=== PATIENT | female | born 2000 | race Caucasian/White ===

== ENCOUNTER 2022-07-24 13:26 | Outpatient (CLI) | payer BC, SELFPAY ==
--- NOTE | 2022-07-24 13:45 | CRLHL7_ITS ---
For Patients: As a result of the Century Cures Act, medical imaging exams and procedure reports are released immediately into your electronic medical record. You may view this report before your referring provider. If you have questions, please contact your health care provider. INDICATION: Migraine headache. TECHNIQUE: Multiplanar multisequence MR imaging acquired through the brain without intravenous contrast. COMPARISON: None. FINDINGS: The ventricles and sulci are within normal limits for patient age. No mass effect or midline shift. No parenchymal signal abnormalities. No intracranial hemorrhage or pathologic extra-axial fluid collection. No diffusion restriction to suggest acute infarction. The major arterial flow voids of the skullbase are preserved. The globes are symmetric. The paranasal sinuses are well aerated. Trace mastoid fluid bilaterally. IMPRESSION: Unremarkable noncontrast MRI of the brain. Dictated by Sean Marr MD @ 07/24/2022 6:04:59 PM (Electronically Signed)
== END 2022-07-24 13:27 | disposition home or self-care (01) ==
LOC: MRI 13:28
PROVIDERS: PCP Psychiatry & Neurology Neurology; Visit Provider Psychiatry & Neurology Neurology
DX: G43.909 Migraine, unspecified, not intractable, without status migrainosus (principal)
CPT/HCPCS: 70551

== ENCOUNTER 2022-11-04 14:51 | Emergency (ER) | payer BC, SELFPAY ==
[2022-11-04 15:04] VITALS: BP 112/75; PULSE 102; RESP 18; TEMP 37.6; O2SAT 99; BMI 20.5
--- NOTE | 2022-11-04 16:43 | CRLHL7_ITS ---
For Patients: As a result of the Century Cures Act, medical imaging exams and procedure reports are released immediately into your electronic medical record. You may view this report before your referring provider. If you have questions, please contact your health care provider. CLINICAL HISTORY: Ovarian cyst IUD No comparison TECHNIQUE: Real time, esposito scale images were acquired of the pelvis using a transabdominal and transvaginal approach. Color Doppler analysis was performed of the ovaries. FINDINGS: The uterus measures 7.4 x 2.7 x 2.8 centimeters. The endometrium measures 6 millimeters. IUD in the endometrial cavity in satisfactory position. The right ovary measures 3.8 x 1.9 x 2.1 centimeters. Left ovary measures 4.4 x 3.2 x 4.1 centimeter. 4 centimeter x 2.4 x 3.6 centimeters left ovarian cyst. Normal blood flow to both ovaries small amount of free fluid in the pelvis IMPRESSION: 1. 4 centimeter left ovarian cyst. Normal blood flow to both ovaries. 2. IUD in satisfactory position. Dictated by Ciara Davis MD @ 11/04/2022 5:43:47 PM (Electronically Signed)
[2022-11-04] MEDS: KETOROLAC 15 MG/ML inj IVP (17:31)
--- NOTE | 2022-11-04 18:02 | ED_ITS ---
HPI - General Adult General Date Seen: 11/04/22 Chief complaint: Unspecified Complaint, Adult Stated complaint: Ovarian cyst Time Seen by Provider: 11/04/22 16:23 Source: patient Mode of arrival: ambulatory Limitations: no limitations History of Present Illness HPI narrative: Patient is a 21-year-old here with her fiance for evaluation of pain from an ovarian cyst. She reports that she was seen in urgent care in [place] last Thursday, 6 days ago. She had an ultrasound, labs and urine done at that time. Urinalysis was negative, test was negative, CBC was normal. An ultr asound showed a 4 x 3 cm complex cyst. It was recommended that she follow-up with gynecology and she has an appointment for that in 2 days time. She says she is continuing to have left lower quadrant pain, a little bit worse than it was last week, which is worse when she is up and walking around. She is supposed to work tomorrow and does not think that she will be able to work, requesting a note. She says she has been taking ibuprofen and Tylenol alternating and does not feel that that adequately controlling her pain. She has not had fevers or vomiting. She had an IUD placed a couple of weeks ago and has continued to have some vaginal bleeding, not heavy. Related Data Home Medications Medication Instructions Recorded Confirmed buspirone 15 mg tablet mg 11/04/22 gabapentin 100 mg capsule mg 11/04/22 rizatriptan 10 mg disintegrating mg 11/04/22 tablet venlafaxine 150 mg mg PO 11/04/22 capsule,extended release 24 hr Allergies Allergy/AdvReac Type Severity Reaction Status Date / Time fluconazole [From Diflucan] Allergy Intermediate Verified 11/04/22 15:09 Review of Systems Status of ROS: Reports: 10 or more systems reviewed and unremarkable except as noted in History and below [facility] Social History Smoking Status: Never smoker Do you use any of these nicotine containing products: None Second hand tobacco smoke exposure: No How often do you have a drink containing alcohol: never AUDIT-C Alcohol total score: 0 Non-prescribed substance use: denies use service: No Exam Narrative: Exam Narrative: Vital signs as noted above. In general, an alert, well-appearing patient. Head: Normocephalic, atraumatic. Eyes: Pupils are equal reactive. Extraocular movements are full. Conjunctivae are normal. ENT: Mucous membranes are moist. Throat is normal. Neck: Supple without lymphadenopathy. Heart: Regular rate and rhythm. No murmur or rub. Lungs: Clear bilaterally. No increased work of breathing, crackles or wheezes. Abdomen: Soft and nondistended. Mild left lower quadrant tenderness without rebound guarding or rigidity. Extremities: Well perfused. No edema. No calf tenderness. Pulses intact. Neurologic: Patient is alert and oriented to person and place. Speech is fluent. Face is symmetric. Moves all extremities equally. Affect: Normal. Skin: Warm and dry. Well perfused. Const: Vital Signs, click to edit/add: Vital Signs - 24 hr 11/04/22 15:04 Temperature 99.7 F H Pulse Rate [Pulse Oximeter] 102 H Respiratory Rate 18 Blood Pressure [Ri ght Upper Arm] 112/75 Pulse Oximetry 99 Oxygen Delivery Me thod Room Air Course Course Hospital Course: I reviewed her findings from urgent care last week. She had these on her phone. I repeated the ultrasound to make sure there was no evidence of rupture, free fluid, torsion. The final radiology report notes the continued presence of of 4 x 3 cm cyst. There is a small amount of free fluid in the pelvis, and rupture is possible, but the cyst seems to be unchanged based on measurements. No evidence of torsion bilaterally. She does not present with sudden severe pain, and my clinical suspicion of torsion is low. I think with good blood flow on ultrasound I do not think she needs further evaluation for that diagnosis. She had some Toradol here. I have asked her to change her medication regimen to use Tylenol and ibuprofen together rather than alternating. Her abdominal exam is benign. I do not think this represents tubo-ovarian abscess or other pelvic infection. I would recommend follow-up with gynecology as planned. I gave her a note for work tomorrow. For continued worsening in the interim, return to the ER for further evaluation. Vital Signs Vital signs: Initial Vital Signs Temperature 99.7 F H 11/04/22 15:04 Temperature Source Temporal Artery Scan 11/04/22 15:04 Pulse Rate 102 H 11/04/22 15:04 Respiratory Rate 18 11/04/22 15:04 Blood Pressure 112/75 11/04/22 15:04 Blood Pressure Mean 87 11/04/22 15:04 Blood Pressure Position Supine 11/04/22 15:04 Pulse Oximetry 99 11/04/22 15:04 Oxygen Delivery Method 11/04/22 15:04 Vital Signs Temperature 99.7 F H 11/04/22 15:04 Pulse Rate 102 H 11/04/22 15:04 Respiratory Rate 18 11/04/22 15:04 Blood Pressure 112/75 11/04/22 15:04 Pulse Oximetry 99 11/04/22 15:04 Oxygen Delivery Method 11/04/22 15:04 Temperature 99.7 F H 11/04/22 15:04 Pulse Rate 102 H 11/04/22 15:04 Respiratory Rate 18 11/04/22 15:04 Blood Pressure 112/75 11/04/22 15:04 Pulse Oximetry 99 11/04/22 15:04 Oxygen Delivery Method 11/04/22 15:04 Discharge Plan Discharge Clinical Impression: Ovarian cyst Patient Disposition: Home, Self-Care Condition: Stable Instructions: Ovarian Cyst (ED) Additional Instructions: Follow-up on with Gynecology as planned. For pain, I would recommend taking ibuprofen 400 mg plus Tylenol 1000 mg 3 times daily with food. Your ultrasound today's unchanged. You have a 4 x 3 cm cyst but there is no evidence of rupture or torsion. Prescriptions: No Action venlafaxine 150 mg capsule,extended release 24hr PO Label Comments: TAKE 1 CAPSULE (150 MG) BY MOUTH ONCE DAILY WITH A MEAL. rizatriptan 10 mg tablet,disintegrating gabapentin 100 mg capsule Label Comments: TAKE 1 CAPSULE (100 MG) BY MOUTH IN THE MORNING AND 1 CAPSULE (100 MG) IN THE EVENING. buspirone 15 mg tablet Label Comments: TAKE 1 TABLET (15 MG) BY MOUTH ONCE DAILY. Follow Up/Referrals: Apolinar Carrion MD [Primary Care Provider] - Stand Alone Forms: [employer] Info Instructions
== END 2022-11-04 18:11 | disposition home or self-care (01) ==
PROVIDERS: Emergency Provider Emergency Medicine; PCP Psychiatry & Neurology Neurology
DX: N83.202 Unspecified ovarian cyst, left side (principal)
CPT/HCPCS: 76830; 93976; 96374; 99284; J1885

== ENCOUNTER 2023-06-10 08:16 | Emergency (ER) | payer BC, SELFPAY ==
[2023-06-10 08:19] VITALS: BP 115/78; PULSE 109; RESP 18; TEMP 36.9; O2SAT 95; BMI 20.5
--- NOTE | 2023-06-10 09:03 | ED_ITS ---
HPI - General Adult General Time Seen by Provider: 09:03 Date Seen: 06/10/23 Chief complaint: Dizziness/Vertigo Stated complaint: dizzy- confused Time Seen by Provider: 06/10/23 08:19 Source: patient Mode of arrival: ambulatory Limitations: no limitations History of Present Illness HPI narrative: Patient is a 22-year-old female who has history of anxiety, depression, migraines, who presents with some lightheadedness a little bit of the dizziness that she describes as lightheadedness over the last 23 hours. She does not think she can go to work. She has done some home COVID test that were negative. She was exposed to COVID. She has not changed her medications recently and she continues on buspirone gabapentin result try pen and venlafaxine. The patient d enies nuchal rigidity headache neurologic complaints, denies specifically fever. Related Data Home Medications Medication Instructions Recorded Confirmed buspirone 15 mg tablet 15 mg 11/04/22 gabapentin 100 mg capsule 100 mg 11/04/22 rizatriptan 10 mg disintegrating 10 mg 11/04/22 tablet venlafaxine 150 mg 150 mg PO 11/04/22 capsule,extended release 24 hr Allergies Allergy/AdvReac Type Severity Reaction Status Date / Time fluconazole [From Diflucan] Allergy Intermediate Verified 11/04/22 15:09 Review of Systems Status of ROS: Reports: 6 or more systems reviewed and unremarkable except as noted in History and below [facility] Social History Smoking Status: Never smoker Do you use any of these nicotine containing products: None Second hand tobacco smoke exposure: No How often do you have a drink containing alcohol: never AUDIT-C Alcohol total score: 0 Non-prescribed substance use: denies use service: No Exam Narrative: Exam Narrative: Objective: In general patient apparent distress noncyanotic no facial asymmetry Vital signs look largely unremarkable and slightly elevated pulse of 109, is afebrile, O2 sat 95% on room air HEENT is unremarkable no facial asymmetry mouth well-hydrated Neck is supple Chest is clear no rales or wheezing Heart rhythm regular no murmur Abdomen benign soft nontender Extremities are no edema neurologic nonfocal Const: Vital Signs, click to edit/add: Vital Signs - 24 hr 06/10/23 08:19 06/10/23 09:45 06/10/23 10:58 Temperature 98.5 F Pulse Rate [Right Pulse Oximeter] 109 H 82 74 Respiratory Rate 18 14 Blood Pressure [Ri ght Upper Arm] 115/78 104/65 107/64 Pulse Oximetry 95 100 Oxygen Delivery Me thod Room Air Room Air Course Vital Signs Vital signs: Initial Vital Signs Temperature 98.5 F 06/10/23 08:19 Temperature Source Temporal Artery Scan 06/10/23 08:19 Pulse Rate 109 H 06/10/23 08:19 Respiratory Rate 18 06/10/23 08:19 Blood Pressure 115/78 06/10/23 08:19 Blood Pressure Mean 90 06/10/23 08:19 Blood Pressure Position Sitting 06/10/23 08:19 Pulse Oximetry 95 06/10/23 08:19 Oxygen Delivery Method Room Air 06/10/23 08:19 Vital Signs Temperature 98.5 F 06/10/23 08:19 Pulse Rate 109 H 06/10/23 08:19 Respiratory Rate 18 06/10/23 08:19 Blood Pressure 115/78 06/10/23 08:19 Pulse Oximetry 95 06/10/23 08:19 Oxygen Delivery Method Room Air 06/10/23 08:19 Temperature 98.5 F 06/10/23 08:19 Pulse Rate 74 06/10/23 10:58 Respiratory Rate 14 06/10/23 09:45 Blood Pressure 107/64 06/10/23 10:58 Pulse Oximetry 100 06/10/23 09:45 Oxygen Delivery Method Room Air 06/10/23 09:45 Medical Decision Making MDM Narrative Medical decision making narrative: [age] year white female with intermittent lightheadedness over the last couple of days slight dizziness, worse with sitting up quickly, or movement. Possibly mild labyrinthitis. I think it be worth checking COVID/influenza/RSV again. Will check laboratory studies, will give IV fluid, IV Ativan. Will write a note for off work for 2 days and then recheck with primary care at that time. Please see addendum with lab results and disposition Addendum: 10:40 a.m.: The patient's lab studies all look reassuring, her COVID/influenza/RSV tests are negative. I think she should rest today light activity, fluids, off work for a couple of days and then return to primary care, return to ED sooner problems or concerns she certainly could have some type of viral infection but certainly her viral studies today are negative. Her hemodynamics appear stable. Patient comfortable plan. Lab Data Labs: Lab Results 06/10/23 06/10/23 06/10/23 Range/Units 08:22 09:30 09:30 WBC 4.52 (4.50-11.00) K/uL RBC 4.75 (4.00-5.20) m/uL Hgb 14.1 (12.0-16.0) gm/dL Hct 41.7 (33.0-51.0) % MCV 88 (80-100) fL MCH 30 (26-34) pg MCHC 34 (32-36) gm/dL RDW Coeff of Emiliano 12.6 (11.5-15.5) % Plt Count 214 (140-440) K/uL Neut % (Auto) 56.9 (42.0-72.0) % Lymph % (Auto) 32.1 (20-44) % [place] % (Auto) 9.1 (0.0-11.0) % Eos % (Auto) 1.5 (0.0-7.0) % Baso % (Auto) 0.4 (0.0-3.0) % Neut # (Auto) 2.57 (1.7-7.0) K/uL Lymph # (Auto) 1.45 (0.90-2.90) K/uL [place] # (Auto) 0.40 (0.00-0.90) K/UL Eos # (Auto) 0.07 (0.00-0.50) K/uL Baso # (Auto) 0.02 (0.00-0.30) K/uL Abs Immat Gran (auto) 0.00 (0.00-0.30) K/uL Imm/Tot Granulo (auto) 0.0 % Sodium 139 (135-149) mmol/L Potassium 3.6 (3.6-5.1) mmol/L Chloride 103 (96-114) mmol/L Carbon Dioxide 26 (20-32) mmol/L Anion Gap 10 (7-15) mEq/L BUN 10 (5-24) mg/dL Creatinine 0.6 (0.5-1.5) mg/dL Estimated Creat Clear 140.97 Estimated GFR 129 ml/min Glucose 93 (60-115) mg/dL Calcium 9.5 (8.4-10.6) mg/dL Total Bilirubin 0.8 Cancelled (0.1-1.5) mg/dL Direct Bilirubin 0.0 (0.0-0.5) mg/dL AST (12-35) U/L ALT (4-35) U/L Alkaline Phosphatase (40-150) U/L C-Reactive Protein (0.5-1.0) mg/dL Total Protein (6.0-8.3) g/dL Albumin (3.3-5.0) g/dL Amylase (18-89) U/L HCG, Qual (Negative) SARS-CoV-2 (PCR) Negative SARS-CoV-2 (Negative) Influenza Type A (PCR) Negative PCR FLU A (Negative) Influenza Type B (PCR) Negative PCR FLU B (Negative) RSV (PCR) Negative PCR RSV (Negative) 06/10/23 06/10/23 06/10/23 Range/Units 09:30 09:30 09:30 WBC (4.50-11.00) K/uL RBC (4.00-5.20) m/uL Hgb (12.0-16.0) gm/dL Hct (33.0-51.0) % MCV (80-100) fL MCH (26-34) pg MCHC (32-36) gm/dL RDW Coeff of Emiliano (11.5-15.5) % Plt Count (140-440) K/uL Neut % (Auto) (42.0-72.0) % Lymph % (Auto) (20-44) % [place] % (Auto) (0.0-11.0) % Eos % (Auto) (0.0-7.0) % Baso % (Auto) (0.0-3.0) % Neut # (Auto) (1.7-7.0) K/uL Lymph # (Auto) (0.90-2.90) K/uL [place] # (Auto) (0.00-0.90) K/UL Eos # (Auto) (0.00-0.50) K/uL Baso # (Auto) (0.00-0.30) K/uL Abs Immat Gran (auto) (0.00-0.30) K/uL Imm/Tot Granulo (auto) % Sodium (135-149) mmol/L Potassium (3.6-5.1) mmol/L Chloride (96-114) mmol/L Carbon Dioxide (20-32) mmol/L Anion Gap (7-15) mEq/L BUN (5-24) mg/dL Creatinine (0.5-1.5) mg/dL Estimated Creat Clear Estimated GFR ml/min Glucose (60-115) mg/dL Calcium (8.4-10.6) mg/dL Total Bilirubin (0.1-1.5) mg/dL Direct Bilirubin Cancelled (0.0-0.5) mg/dL AST 41 H Cancelled (12-35) U/L ALT 30 Cancelled (4-35) U/L Alkaline Phosphatase 43 (40-150) U/L C-Reactive Protein (0.5-1.0) mg/dL Total Protein (6.0-8.3) g/dL Albumin (3.3-5.0) g/dL Amylase (18-89) U/L HCG, Qual (Negative) SARS-CoV-2 (PCR) (Negative) Influenza Type A (PCR) (Negative) Influenza Type B (PCR) (Negative) RSV (PCR) (Negative) 06/10/23 06/10/23 06/10/23 Range/Units 09:30 09:30 09:30 WBC (4.50-11.00) K/uL RBC (4.00-5.20) m/uL Hgb (12.0-16.0) gm/dL Hct (33.0-51.0) % MCV (80-100) fL MCH (26-34) pg MCHC (32-36) gm/dL RDW Coeff of Emiliano (11.5-15.5) % Plt Count (140-440) K/uL Neut % (Auto) (42.0-72.0) % Lymph % (Auto) (20-44) % [place] % (Auto) (0.0-11.0) % Eos % (Auto) (0.0-7.0) % Baso % (Auto) (0.0-3.0) % Neut # (Auto) (1.7-7.0) K/uL Lymph # (Auto) (0.90-2.90) K/uL [place] # (Auto) (0.00-0.90) K/UL Eos # (Auto) (0.00-0.50) K/uL Baso # (Auto) (0.00-0.30) K/uL Abs Immat Gran (auto) (0.00-0.30) K/uL Imm/Tot Granulo (auto) % Sodium (135-149) mmol/L Potassium (3.6-5.1) mmol/L Chloride (96-114) mmol/L Carbon Dioxide (20-32) mmol/L Anion Gap (7-15) mEq/L BUN (5-24) mg/dL Creatinine (0.5-1.5) mg/dL Estimated Creat Clear Estimated GFR ml/min Glucose (60-115) mg/dL Calcium (8.4-10.6) mg/dL Total Bilirubin (0.1-1.5) mg/dL Direct Bilirubin (0.0-0.5) mg/dL AST (12-35) U/L ALT (4-35) U/L Alkaline Phosphatase Cancelled (40-150) U/L C-Reactive Protein < 0.5 L (0.5-1.0) mg/dL Total Protein 8.1 Cancelled (6.0-8.3) g/dL Albumin 4.5 Cancelled (3.3-5.0) g/dL Amylase 78 (18-89) U/L HCG, Qual Negative (Negative) SARS-CoV-2 (PCR) (Negative) Influenza Type A (PCR) (Negative) Influenza Type B (PCR) (Negative) RSV (PCR) (Negative) Discharge Plan Discharge Clinical Impression: Dizziness Patient Disposition: Home w/ Parent or Adult Condition: Stable Additional Instructions: Off work for 2 days, see primary care at that time, rest, drink plenty of fluids. May take Tylenol Advil as needed. Return to the ED problems or concerns, years workup today was reassuring. May need further care as mention and should see primary care. Activity Level: Light activity Discharge Diet: Regular Prescriptions: No Action venlafaxine 150 mg capsule,extended release 24hr 150 mg PO Patient Comments: TAKE 1 CAPSULE (150 MG) BY MOUTH ONCE DAILY WITH A MEAL. rizatriptan 10 mg tablet,disintegrating 10 mg gabapentin 100 mg capsule 100 mg Patient Comments: TAKE 1 CAPSULE (100 MG) BY MOUTH IN THE MORNING AND 1 CAPSULE (100 MG) IN THE EVENING. buspirone 15 mg tablet 15 mg Patient Comments: TAKE 1 TABLET (15 MG) BY MOUTH ONCE DAILY. Follow Up/Referrals: Apolinar Carrion MD [Primary Care Provider] - Stand Alone Forms: 2,10E+07 Info Instructions
[2023-06-10 09:11] LABS: PCR FLU A Negative PCR FLU A (Negative); PCR FLU B Negative PCR FLU B (Negative); PCR RSV Negative PCR RSV (Negative)
[2023-06-10 09:26] LABS: SARS PCR* Negative SARS-CoV-2 (Negative)
[2023-06-10] MEDS: 0.9 % SODIUM CHLORIDE 1000 ml 1,000 ML 6000 ML IV (09:39)
[2023-06-10 09:40] LABS: Basophils Absolute Auto 0.02 K/uL (0.00-0.30); Basophils Percent Auto 0.4 % (0.0-3.0); Eosinophils Absolute Auto 0.07 K/uL (0.00-0.50); Eosinophils Percent Auto 1.5 % (0.0-7.0); Hematocrit 41.7 % (33.0-51.0); Hemoglobin* 14.1 gm/dL (12.0-16.0); Lymphocytes Absolute Auto 1.45 K/uL (0.90-2.90); Lymphocytes Percent Auto 32.1 % (20-44); Mean Corpuscular HGB Conc 34 gm/dL (32-36); Mean Corpuscular Hemoglobin 30 pg (26-34); Mean Corpuscular Volume 88 fL (80-100); Monocytes Percent Auto 9.1 % (0.0-11.0); Neutrophils Absolute Auto 2.57 K/uL (1.7-7.0); Neutrophils Percent Auto 56.9 % (42.0-72.0); Platelet Count* 214 K/uL (140-440); RDW Coefficient of Variation % 12.6 % (11.5-15.5); Red Blood Count 4.75 m/uL (4.00-5.20); White Blood Count* 4.52 K/uL (4.50-11.00)
[2023-06-10 09:41] LABS: Slide Review Reflex No
[2023-06-10] MEDS: LORazepam 2 MG/ML inj 1 MG IVP (09:41)
[2023-06-10 09:45] VITALS: BP 104/65; PULSE 82; RESP 14; O2SAT 100
[2023-06-10 10:09] LABS: Albumin* 4.5 g/dL (3.3-5.0); Chloride* 103 mmol/L (96-114); Sodium* 139 mmol/L (135-149)
[2023-06-10 10:10] LABS: Potassium* 3.6 mmol/L (3.6-5.1)
[2023-06-10 10:12] LABS: Amylase* 78 U/L (18-89); Anion Gap 10 mEq/L (7-15); Aspartate Amino Transferase* 41 U/L (12-35); Bilirubin Total* 0.8 mg/dL (0.1-1.5); Blood Urea Nitrogen* 10 mg/dL (5-24); Carbon Dioxide* 26 mmol/L (20-32); Creatinine* 0.6 mg/dL (0.5-1.5); Est. Creatinine Clearance* 140.97; Estimated Glomerular Filt Rate 129 ml/min; Total Protein* 8.1 g/dL (6.0-8.3)
[2023-06-10 10:13] LABS: Alanine Aminotransferase* 30 U/L (4-35); Alkaline Phosphatase* 43 U/L (40-150); Calcium* 9.5 mg/dL (8.4-10.6); Glucose* 93 mg/dL (60-115)
[2023-06-10 10:14] LABS: HCG Qualitative Serum* Negative (Negative)
[2023-06-10 10:35] LABS: C Reactive Protein* < 0.5 mg/dL (0.5-1.0)
[2023-06-10 10:58] VITALS: BP 107/64; PULSE 74
== END 2023-06-10 10:58 | disposition home or self-care (01) ==
PROVIDERS: Emergency Provider Family Medicine; PCP Psychiatry & Neurology Neurology
DX: R42 Dizziness and giddiness (principal)
CPT/HCPCS: 36415; 80048; 80076; 82150; 84703; 85025; 86140; 87631; 96361; 96374; 99284; J2060; J7030

== ENCOUNTER 2024-11-13 15:16 | Emergency (ER) | payer OTHER, SELFPAY ==
[2024-11-13] VITALS (29 sets, daily range): BP systolic 82–113; BP diastolic 45–78; PULSE 67–99; RESP 16–18; TEMP 36.4–36.5; O2SAT 97–100; BMI 22.2
--- OUTSIDE RECORDS SUMMARY | 2024-11-13 15:18 | XMS_ITS | Data Portability ---
Author Organization [place] - [facility] [employer], [employer] [facility] Address [address] [facility] [address] [place] [address] Assessment Encounter Date Assessment Date Assessment LastModified by Organization Details LastModified Time 09/12/2024 09/12/2024 ASSESSMENT: Visit 12/27 Patient is a good candidate for conservative care and the prognosis is for a favorable outcome that achieves the patients' goals. We discussed etiology, activity modifications, home care, and other treatment options. Initially, it is recommended that the patient receive in-office treatment 1 times per week for 8 weeks at which time a re-evaluation will be performed to determine an appropriate change in plan. Initially, treatment will focus on joint manipulation to restore range of motion and reduce pain. We will slowly progress to therapeutic exercises and activities to improve function, strength, and stability may also be used as warranted. If the patient is not responding as expected, more invasive procedures will be discussed along with a referral. All considerations above were discussed with the patient and questions answered to satisfaction. If the patient should have any additional questions, or should the condition evolve or worsen, the patient should not hesitate to contact our office. Not available 09/12/2024 14:41:07 09/26/2024 09/26/2024 ASSESSMENT: Visit 01/26 Patient is a good candidate for conservative care and the prognosis is for a favorable outcome that achieves the patients' goals. We discussed etiology, activity modifications, home care, and other treatment options. Initially, it is recommended that the patient receive in-office treatment 1 times per week for 8 weeks at which time a re-evaluation will be performed to determine an appropriate change in plan. Initially, treatment will focus on joint manipulation to restore range of motion and reduce pain. We will slowly progress to therapeutic exercises and activities to improve function, strength, and stability may also be used as warranted. If the patient is not responding as expected, more invasive procedures will be discussed along with a referral. All considerations above were discussed with the patient and questions answered to satisfaction. If the patient should have any additional questions, or should the condition evolve or worsen, the patient should not hesitate to contact our office. Not available 09/28/2024 09:09:09 10/10/2024 10/10/2024 ASSESSMENT: Visit 68 Patient is a good candidate for conservative care and the prognosis is for a favorable outcome that achieves the patients' goals. We discussed etiology, activity modifications, home care, and other treatment options. Initially, it is recommended that the patient receive in-office treatment 1 times per week for 8 weeks at which time a re-evaluation will be performed to determine an appropriate change in plan. Initially, treatment will focus on joint manipulation to restore range of motion and reduce pain. We will slowly progress to therapeutic exercises and activities to improve function, strength, and stability may also be used as warranted. If the patient is not responding as expected, more invasive procedures will be discussed along with a referral. All considerations above were discussed with the patient and questions answered to satisfaction. If the patient should have any additional questions, or should the condition evolve or worsen, the patient should not hesitate to contact our office. Not available 10/10/2024 14:40:22 10/24/2024 10/24/2024 ASSESSMENT: Visit 03/28 Patient is a good candidate for conservative care and the prognosis is for a favorable outcome that achieves the patients' goals. We discussed etiology, activity modifications, home care, and other treatment options. Initially, it is recommended that the patient receive in-office treatment 1 times per week for 8 weeks at which time a re-evaluation will be performed to determine an appropriate change in plan. Initially, treatment will focus on joint manipulation to restore range of motion and reduce pain. We will slowly progress to therapeutic exercises and activities to improve function, strength, and stability may also be used as warranted. If the patient is not responding as expected, more invasive procedures will be discussed along with a referral. All considerations above were discussed with the patient and questions answered to satisfaction. If the patient should have any additional questions, or should the condition evolve or worsen, the patient should not hesitate to contact our office. Not available 10/24/2024 15:27:57 11/08/2024 11/08/2024 ASSESSMENT: Visit 04/28 Patient is a good candidate for conservative care and the prognosis is for a favorable outcome that achieves the patients' goals. We discussed etiology, activity modifications, home care, and other treatment options. Initially, it is recommended that the patient receive in-office treatment 1 times per week for 8 weeks at which time a re-evaluation will be performed to determine an appropriate change in plan. Initially, treatment will focus on joint manipulation to restore range of motion and reduce pain. We will slowly progress to therapeutic exercises and activities to improve function, strength, and stability may also be used as warranted. If the patient is not responding as expected, more invasive procedures will be discussed along with a referral. All considerations above were discussed with the patient and questions answered to satisfaction. If the patient should have any additional questions, or should the condition evolve or worsen, the patient should not hesitate to contact our office. Not available 11/08/2024 18:05:46 Plan of Treatment Reminders Order Date Submit Date Provider Last Modified By Organization Details Last Modified Time Details Appointments DC Treatment 05 2024 08:00A M Ryan Peralta ASHWIN Not available Not available Not available Lab None recorded. Referral None recorded. Procedures None recorded. Surgeries None recorded. Imaging None recorded. Medication Orders None recorded. Patient TargetsNo targets recorded. Patient InstructionsNo instructions recorded. Reason for Referral None Reported. Problems Name Problem SNOMED Code Status Onset Date Resolution Date Notes Provider Name and Address Organization Details Recorded Time Neck pain 30664999 Active 2023 Ryan Galvez SelvinyaniraASHWIN [address], [place], [address], [facility] 4 11:21:16 Thoracic segmental dysfunction 299431609 Active 2023 Ryan Galvez [place] [address], [place], [address], [facility] 4 11:21:16 Lesion of lumbar spine 409713949 Active 2023 Ryan Orellanaanilyanira [place] [address], [place], [address], [place] [facility] 4 11:21:16 Lumbar segmental dysfunction 484309367 Active 2023 Ryan Peralta [place] [address], [place], [address], [place] [facility] 4 11:21:16 Problem Notes None recorded. Procedures Surgical History Date Name Laterality Status Provider Name and Address Organization Details Recorded Time 5 71372: Spinal manipulation , 3 to 4 regions completed Ryan Peralta DC [address], [place], [address], [facility] 11/08/2024 18:05:24 5 21269: Spinal manipulation , 3 to 4 regions completed Ryan Peralta DC [address], [place], [address], [facility] 10/24/2024 15:26:53 5 83276: Spinal manipulation , 3 to 4 regions completed Ryan Peralta DC [address], [place], [address], [facility] 10/10/2024 14:39:50 5 24631: Spinal manipulation , 3 to 4 regions completed Ryan Peralta ASHWIN [address], [place], [address], [facility] 09/28/2024 09:08:51 4 10079: Spinal manipulation , 3 to 4 regions completed Ryan Peralta DC [address], [place], [address], [facility] 09/12/2024 14:40:41 4 34532: Spinal manipulation , 3 to 4 regions completed Ryan Peralta, [place] [address], [place], [address], [facility] 09/05/2024 16:59:23 4 72480: Spinal manipulation , 3 to 4 regions completed [place], [place] [address], [place], [address], [facility] 08/29/2024 15:14:59 13103: Spinal manipulation , 3 to 4 regions completed [place], [place] [address], [place], [address], [facility] 08/24/2024 11:22:37 Imaging Results None recorded. Procedure Notes None recorded. Medical Equipment None Reported. Medications Name Sig Start Date Stop Date Status Note LastModified by Organization Details LastModified Time cyclobenzaprine 10 mg tablet TAKE 1 TABLET (10 MG) BY MOUTH AT BEDTIME IF NEEDED FOR MUSCLE SPASM. active Not Available Not Available No t Available venlafaxine ER 75 mg capsule,extende d release 24 hr TAKE 1 CAPSULE (75 MG) BY MOUTH EVERY MORNING. WITH 150 MG CAPSULE active Not Available Not Available No t Available cetirizine 10 mg tablet TAKE 1 TABLET (10 MG) BY MOUTH ONCE DAILY. active Not Available Not Available No t Available tizanidine 4 mg tablet TAKE 1 TABLET (4 MG) BY MOUTH EVERY 6 HOURS IF NEEDED FOR MUSCLE SPASM. active Not Available Not Available No t Available venlafaxine ER 150 mg capsule,extende d release 24 hr TAKE 1 CAPSULE (150 MG) BY MOUTH ONCE DAILY WITH A MEAL. TAKE WITH 75 MG CAPSULE FOR TOTAL DAILY DOSE OF 225 MG. active Not Available Not Available No t Available rizatriptan [address] 1 TABLET (10MG) ON THE TONGUE 2 TIMES DAILY IF NEEDED FOR MIGRAINE . MINIMUM AT 2HRS APART. MAX DOSE 30MG/24H RS. DO NOT TAKE DAILY active Not Available Not Available No t Available gabapentin 100 mg capsule TAKE 1 CAPSULE (100 MG) BY MOUTH IN THE MORNING AND 1 CAPSULE (100 MG) IN THE EVENING. active Not Available Not Available No t Available polyethylene glycol 3350 17 gram/dose oral powder MIX 1 SCOOP (17 G) IN LIQUID THEN TAKE BY MOUTH ONCE DAILY. active Not Available Not Available No t Available amoxicillin 875 mg-potassium clavulanate 125 mg tablet TAKE 1 TABLET BY MOUTH TWO TIMES DAILY WITH MEALS FOR 5 DAYS. active Not Available Not Available No t Available buspirone 15 mg tablet TAKE 1 TABLET (15 MG) BY MOUTH ONCE DAILY. active Not Available Not Available No t Available oxycodone 5 mg tablet TAKE 1-2 TABLETS (5-10 MG) BY MOUTH EVERY 4 HOURS IF NEEDED FOR PAIN. active Not Available Not Available No t Available Clotrimazole-3 2 % vaginal cream INSERT INTO THE VAGINA AT BEDTIME FOR 3 DAYS. active Not Available Not Available No t Available Vitals None Recorded Social History None recorded. Functional Status None recorded. Mental Status None recorded. Family History Nothing Reported. Medical History No medical history recorded. Gynecological HistoryNo gynecological history recorded. Obstetrics History GPAL:G 0 P 0 0 0 0 Past Encounters Encounter ID Performer Location Encounter Start Date Encounter Closed Date Diagnosis/Indication Diagnosis SNOMED-CT Code Diagnosis ICD10 Code Diagnosis Note [id number] [place]eralta [place] [facility] [address] [place] [address] 08/24/2024 10:14:22 08/24/2024 11:50:00 Lesion of lumbar spine 482313574 M99.01 Neck pain 26035442 M54.2 Thoracic s egmental dysfunction 497777386 M99.02 Lumbar seg mental dysfunction 559053388 M99.03 [id number] Ryan Peralta [place] [facility] [address] [place] [address] 08/29/2024 11:38:29 08/29/2024 16:29:36 Lesion of lumbar spine 347410273 M99.01 Neck pain 64901011 M54.2 Thoracic s egmental dysfunction 479483917 M99.02 Lumbar seg mental dysfunction 750946227 M99.03 [id number] Ryan Peralta [place] [facility] [address] [place] [address] 09/05/2024 16:09:09 09/05/2024 17:14:32 Lesion of lumbar spine 193122048 M99.01 Neck pain 89009543 M54.2 Thoracic s egmental dysfunction 890737192 M99.02 Lumbar seg mental dysfunction 176651210 M99.03 [id number] Ryan Peralta DC [facility] & [address] [place] [address] 09/12/2024 12:52:40 09/12/2024 14:51:32 Lesion of lumbar spine 758577201 M99.01 Neck pain 25775065 M54.2 Thoracic s egmental dysfunction 973122325 M99.02 Lumbar seg mental dysfunction 296489836 M99.03 [id number] Ryan Peralta DC [facility] [address] [place] [address] 09/26/2024 10:18:53 09/27/2024 11:21:16 Lesion of lumbar spine 129605486 M99.01 Neck pain 66661598 M54.2 Thoracic s egmental dysfunction 728190002 M99.02 Lumbar seg mental dysfunction 488378679 M99.03 [id number] Ryan Peralta DC [facility] [address] [place] [address] 10/10/2024 09:26:45 10/10/2024 15:13:24 Lesion of lumbar spine 860913252 M99.01 Neck pain 00195065 M54.2 Thoracic s egmental dysfunction 413395153 M99.02 Lumbar seg mental dysfunction 786506484 M99.03 [id number] Ryan Peralta DC [facility] [address] [place] [address] 10/24/2024 09:27:20 10/24/2024 16:15:22 Lesion of lumbar spine 222338313 M99.01 Neck pain 59295099 M54.2 Thoracic s egmental dysfunction 921101909 M99.02 Lumbar seg mental dysfunction 689290809 M99.03 [id number] Ryan Peralta DC [facility] [address] [place] [address] 11/08/2024 12:21:44 11/08/2024 18:19:19 Lesion of lumbar spine 031229944 M99.01 Neck pain 55340917 M54.2 Thoracic s egmental dysfunction 260209664 M99.02 Lumbar seg mental dysfunction 324172127 M99.03 Health Concerns Section Related Observation LastModified by Organization Detai ls LastModified Time None Recorded Concern Status LastModified by Organization Details LastModified Time None Recorded Advance Directives Directive None Recorded Payers Encounter Date Sequence Insurance Name Policy Number Policy Morrow Covered Member ID Morrow Member ID Guarantor Name 09/12/2024 1 [id number] [id number] Evelyn A Savana [id number] Evelyn Savana 09/26/2024 1 [facility] [id number] [place] [id number] Evelyn Savana 10/10/2024 1 [facility] [id number] Evelyn [place] [id number] Evelyn Savana 10/24/2024 1 [facility] [id number] Evelyn [place] [id number] Evelyn Savana 11/08/2024 1 [facility] [id number] Evelyn Savana [id number] Evelyn Savana Notes Date Note Type Note Provider Name and Address Organization Details Recorded Time 09/12/2024 text/html HPI - Cervical SpineReported bypatient.Location: left Quality:aching Severity:moderate Duration:2 weeks Timing:gradual Alleviating Factors:ice Aggravating Factors:sitting Associated Symptoms:no numbness/tinglingNo concha:Associated migraines and sternum pain Patient reports improvement. Ryan Orellanaanilyanira [address], [address], [facility] 09/12/2024 14:41:22 09/26/2024 text/html HPI - Cervical SpineReported bypatient.Location: left Quality:aching Severity:moderate Duration:2 weeks Timing:gradual Alleviating Factors:ice Aggravating Factors:sitting Associated Symptoms:no numbness/tinglingNo concha:Associated migraines and sternum pain Patient reports no headache in the past 2 weeks. Ryan Peralta [place] [address], [place], [address], [facility] 09/28/2024 09:09:32 10/10/2024 text/html HPI - Cervical SpineReported bypatient.Location: left Quality:aching Severity:moderate Duration:2 weeks Timing:gradual Alleviating Factors:ice Aggravating Factors:sitting Associated Symptoms:no numbness/tinglingNo concha:Associated migraines and sternum pain Patient reports small headache last week. Ryan Peralta DC [address], [place], [address], [facility] 10/10/2024 14:40:35 10/24/2024 text/html HPI - Cervical SpineReported bypatient.Location: left Quality:aching Severity:moderate Duration:2 weeks Timing:gradual Alleviating Factors:ice Aggravating Factors:sitting Associated Symptoms:no numbness/tinglingNo concha:Associated migraines and sternum pain Patient reports small headache last week. Ryan Peralta DC [address], [place], [address], [facility] 10/24/2024 15:28:13 11/08/2024 text/html HPI - Cervical SpineReported bypatient.Location: left Quality:aching Severity:moderate Duration:2 weeks Timing:gradual Alleviating Factors:ice Aggravating Factors:sitting Associated Symptoms:no numbness/tinglingNo concha:Associated migraines and sternum pain Patient reports small headache last week. Ryan Peralta DC [address], [place], [address], [facility] 11/08/2024 18:06:11 OBGyn Episode No OBEpisode recorded.
--- OUTSIDE RECORDS SUMMARY | 2024-11-13 15:18 | XMS_ITS | Continuity of Care Document ---
Author Organization [place] - [facility] Address [address] [place] [address] Assessment Encounter Date Assessment Date Assessment LastModified by Organization Details LastModified Time 10/24/2024 10/24/2024 ASSESSMENT: Visit 7/8 Patient is a good candidate for conservative [...] should not hesitate to contact our office. [email or web address] Not available 10/24/2024 15:27:57 Plan of Treatment Reminders Order Date Submit Date Provider Last Modified By Organization Details Last Modified Time Details Appointments DC Treatment 05 2024 08:00A M Ryan Peralta DC Not available Not available Not available Lab None recorded. Referral None recorded. Procedures None recorded. Surgeries None recorded. Imaging None recorded. Medication Orders None recorded. Patient TargetsNo targets recorded. Patient InstructionsNo instructions recorded. Reason for Referral None Reported. Problems Name Problem SNOMED Code Status Onset Date Resolution Date Notes Provider Name and Address Organization Details Recorded Time Neck pain 25487643 Active 2023 Ryan Peralta DC [address], [place], [address], [facility] 4 11:21:16 Thoracic segmental dysfunction 551749570 Active 2023 Ryan Peralta DC [address], [place], [address], [facility] 4 11:21:16 Lesion of lumbar spine 604925789 Active 2023 Ryan Peralta DC [address], [place], [address], [facility] 4 11:21:16 Lumbar segmental dysfunction 878730520 Active 2023 Ryan Peralta DC [address], [place], [address], [facility] 4 11:21:16 Problem Notes None recorded. Procedures Surgical History Date Name Laterality Status Provider Name and Address Organization Details Recorded Time 5 04989: Spinal manipulation , 3 to 4 regions completed Ryan Peralta DC [address] [facility], [place], [address], [facility] 11/08/2024 18:05:24 5 74612: Spinal manipulation , 3 to 4 regions completed Ryan Peralta DC [address], [place], [address], [facility] 10/24/2024 15:26:53 5 27373: Spinal manipulation , 3 to 4 regions completed Ryan Peralta DC [address] [facility] [address], [place], [address], [facility] 10/10/2024 14:39:50 5 81924: Spinal manipulation , 3 to 4 regions completed Ryan Peralta [place] [address] [facility] [address], [place], [address], [facility] 09/28/2024 09:08:51 4 45054: Spinal manipulation , 3 to 4 regions completed [facility] [place] [address], [place], [address], [facility] 09/12/2024 14:40:41 4 94438: Spinal manipulation , 3 to 4 regions [facility] [place] [place] [place] [address], [place], [address], [facility] 09/05/2024 16:59:23 4 18801: Spinal manipulation , 3 to 4 regions completed [facility] [place] [address], [place], [address], [facility] 08/29/2024 15:14:59 4 06280: Spinal manipulation , 3 to 4 regions completed [facility] [place] [address], [place], [address], [facility] 08/24/2024 11:22:37 Imaging Results None recorded. Procedure [...] SNOMED-CT Code Diagnosis ICD10 Code Diagnosis Note [id number] Ryan Peralta DC [facility] & [address] [place] [address] 09/26/2024 10:18:53 09/27/2024 11:21:16 Lesion of lumbar spine 639655932 M99.01 Neck pain 87144223 M54.2 Thoracic s egmental dysfunction 034935412 M99.02 Lumbar seg mental dysfunction 182224037 M99.03 [id number] Ryan Peralta DC [facility] & [address] [place] [address] 10/10/2024 09:26:45 10/10/2024 15:13:24 Lesion of lumbar spine 305305916 M99.01 Neck pain 95689470 M54.2 Thoracic s egmental dysfunction 985044249 M99.02 Lumbar seg mental dysfunction 402701106 M99.03 [id number] Ryan Peratla DC [facility] [address] [facility] [place] [address] 10/24/2024 09:27:20 10/24/2024 16:15:22 Lesion of lumbar spine 794256832 M99.01 Neck pain 53286531 M54.2 Thoracic s egmental dysfunction 651397565 M99.02 Lumbar seg mental dysfunction 774425678 M99.03 Health Concerns Section Related Observation LastModified by Organization Detai ls LastModified Time None Recorded Concern Status LastModified by Organization Details LastModified Time None Recorded Payers Encounter Date Sequence Insurance Name Policy Number Policy Morrow Covered Member ID Morrow Member ID Guarantor Name 10/24/2024 1 [facility] [id number] Evelyn Sawant [id number] Evelyn Sawant Notes Date Note Type Note Provider Name and Address Organization Details Recorded Time 10/24/2024 text/html HPI - Cervical SpineReported bypatient.Location: left Quality:aching Severity:moderate Duration:2 weeks Timing:gradual Alleviating Factors:ice Aggravating Factors:sitting Associated Symptoms:no numbness/tinglingNo concha:Associated migraines and sternum pain Patient reports small headache last week. Ryan Peralta DC [address] [facility] [address], [place], [address], [facility] - [facility] 10/24/2024 15:28:13 OBGyn Episode No OBEpisode recorded.
--- OUTSIDE RECORDS SUMMARY | 2024-11-13 15:18 | XMS_ITS | Clinical Summary ---
Author Organization [facility] Address [address] , [address] [place] [address] Phone Care Team Providers Care Diesel Engine Inspector Name Role Phone Filemon WOLFE, Niels Mckeon [phone] Conditions or Problems Problem Name Problem Code Onset Date Status Entry Date Provider Comment Standard Description Annotate Migraine headache [id number] (SNOMED CT) Active Apolinar Carrion MD Migraine Medications No information available. Medications Administered No information available. Allergies, Adverse Reactions, Alerts No information available. Results Date Name Value Unit Range Flag Description Internal Other: Verbal Autho rization/Emergency Contact - OBS VERBAL_EMER DONE Verbal au thorization and emergency contact Internal Other: Authorizatio n - OBS [email or web address] Yes Authoriza tion: Release of Information - Authorize [facility] - Payment and Healthcare Operations ROIAUTHOTHER Yes Authoriz ation: Release of Information - Authorize Others/Insurance - Payment and Healthcare Operations HIECONSENT Yes Consent To Release information to the Health Information Exchange (HIE) [email or web address] Yes Authorizat ion: Authorization for [facility] to leave messages, voicemail, send text messages, send emails [email or web address] Yes Authoriz ation: Release/Retrieval of Information to/from Healthcare Facilities, Pharmacy Benefit Payers and Providers [email or web address] Yes Authoriz ation: Notice of privacy practices AUTHBENEFIT Yes Authoriza tion: Assignment of Benefits and Payment Agreement Plan of Care Type Date Detail Pending order MRI-Brain W/O Pending order MRI-Brain W/O Procedures No information available. Vital Signs No information available. Immunizations No information available. Advance Directives No information available.
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
--- OUTSIDE RECORDS SUMMARY | 2024-11-13 15:19 | XMS_ITS | Continuity of Care Document ---
Author Organization [place] - [facility] Address [address] [facility] [address] [facility] [address] [place] [address] Assessment Encounter Date Assessment Date Assessment LastModified by Organization Details LastModified Time 10/10/2024 10/10/2024 ASSESSMENT: Visit 6/8 Patient is a good candidate for conservative [...] to contact our office. [email or web address] Not available 10/10/2024 14:40:22 Plan of Treatment Reminders Order Date Submit [...] Address Organization Details Recorded Time Neck pain 19738640 Active 2023 Ryan Peralta DC [address] [facility] [address], [place], [address], [facility] 4 11:21:16 Thoracic segmental dysfunction 945871069 Active 2023 Ryan Peralta DC [address] [facility] [address], [place], [address], [facility] 4 11:21:16 Lesion of lumbar spine 941877686 Active 2023 Ryan Peralta DC [address] [facility] [address], [place], [address], [facility] 4 11:21:16 Lumbar segmental dysfunction 966215029 Active 2023 Ryan Peralta DC [address] [facility] [address], [place], [address], [facility] 4 11:21:16 Problem Notes None recorded. Procedures Surgical History Date Name Laterality Status Provider Name and Address Organization Details Recorded Time 5 57027: Spinal manipulation , 3 to 4 regions completed Ryan Peralta DC [address], [place], [address], [facility] 11/08/2024 18:05:24 5 19611: Spinal manipulation , 3 to 4 regions completed Ryan Peralta DC [address] [facility] [address], [place], [address], [facility] 10/24/2024 15:26:53 5 51549: Spinal manipulation , 3 to 4 regions completed Ryan Peralta DC [address], [place], [address], [facility] 10/10/2024 14:39:50 5 44455: Spinal manipulation , 3 to 4 regions completed Ryan Peralta [place] [address], [place], [address], [facility] 09/28/2024 09:08:51 4 02071: Spinal manipulation , 3 to 4 regions completed [facility] [place] [address], [place], [address], [facility] 09/12/2024 14:40:41 4 97179: Spinal manipulation , 3 to 4 regions completed [facility] [place] [address], [place], [address], [facility] 09/05/2024 16:59:23 4 85830: Spinal manipulation , 3 to 4 regions completed [facility] [place] [address], [place], [address], [facility] 08/29/2024 15:14:59 4 21131: Spinal manipulation , 3 to 4 regions completed [facility] [place] [address], [place], [address], [facility] 08/24/2024 11:22:37 Imaging Results None recorded. Procedure [...] SNOMED-CT Code Diagnosis ICD10 Code Diagnosis Note [id number] Ryan Peralta DC [facility] & [address] [place] [address] 09/12/2024 12:52:40 09/12/2024 14:51:32 Lesion of lumbar spine 284409179 M99.01 Neck pain 98851532 M54.2 Thoracic s egmental dysfunction 562486496 M99.02 Lumbar seg mental dysfunction 398648393 M99.03 [id number] Ryan Peralta DC [facility] & [address] [place] [address] 09/26/2024 10:18:53 09/27/2024 11:21:16 Lesion of lumbar spine 969411602 M99.01 Neck pain 51330968 M54.2 Thoracic s egmental dysfunction 940266999 M99.02 Lumbar seg mental dysfunction 023259676 M99.03 [id number] Ryan Peralta DC [facility] [address] [place] [address] 10/10/2024 09:26:45 10/10/2024 15:13:24 Lesion of lumbar spine 290075303 M99.01 Neck pain 88593632 M54.2 Thoracic s egmental dysfunction 277452039 M99.02 Lumbar seg mental dysfunction 717194862 M99.03 Health Concerns Section Related Observation LastModified by Organization Detai ls LastModified Time None Recorded Concern Status LastModified by Organization Details LastModified Time None Recorded Payers Encounter Date Sequence Insurance Name Policy Number Policy Morrow Covered Member ID Morrow Member ID Guarantor Name 10/10/2024 1 [facility] [id number] Evelyn Sawant [id number] Evelyn Sawant Notes Date Note Type Note Provider Name and Address Organization Details Recorded Time 10/10/2024 text/html HPI - Cervical SpineReported bypatient.Location: left Quality:aching Severity:moderate Duration:2 weeks Timing:gradual Alleviating Factors:ice Aggravating Factors:sitting Associated Symptoms:no numbness/tinglingNo concha:Associated migraines and sternum pain Patient reports small headache last week. Ryan Peralta DC [address], [place], [address], [facility] 10/10/2024 14:40:35 OBGyn Episode No OBEpisode recorded.
--- OUTSIDE RECORDS SUMMARY | 2024-11-13 15:19 | XMS_ITS | Continuity of Care Document ---
Author Organization [place] [facility] Address [address] [facility] [address] [place] [address] Assessment Encounter Date Assessment Date Assessment LastModified by Organization Details LastModified Time 11/08/2024 11/08/2024 ASSESSMENT: Visit 04/28 Patient is [...] to contact our office. [email or web address] Not available 11/08/2024 18:05:46 Plan of Treatment [...] Address Organization Details Recorded Time Neck pain 92624497 Active 2023 Ryan Peralta DC [address] [facility] [address], [place], [address], [facility] 4 11:21:16 Thoracic segmental dysfunction 163602484 Active 2023 Ryan Peralta DC [address] [facility] [address], [place], [address], [facility] 4 11:21:16 Lesion of lumbar spine 778657923 Active 2023 Ryan Peralta DC [address] [facility] [address], [place], [address], [facility] 4 11:21:16 Lumbar segmental dysfunction 970132101 Active 2023 Ryan Peralta DC [address] [facility] [address], [place], [address], [facility] 4 11:21:16 Problem Notes None recorded. Procedures Surgical History Date Name Laterality Status Provider Name and Address Organization Details Recorded Time 5 95015: Spinal manipulation , 3 to 4 regions completed Ryan Peralta DC [address] [facility], [place], [address], [facility] 11/08/2024 18:05:24 5 11732: Spinal manipulation , 3 to 4 regions completed Ryan Peralta DC [address] [facility] [address], [place], [address], [facility] 10/24/2024 15:26:53 5 60051: Spinal manipulation , 3 to 4 regions completed Ryan Peralta DC [address] [facility], [place], [address], [facility] 10/10/2024 14:39:50 5 81286: Spinal manipulation , 3 to 4 regions completed Ryan Peralta [place] [address] [facility], [place], [address], [facility] 09/28/2024 09:08:51 4 55482: Spinal manipulation , 3 to 4 regions completed [facility] [place]enny [place], [place] [address] [facility], [place], [address], [facility] 09/12/2024 14:40:41 4 29397: Spinal manipulation , 3 to 4 regions completed [facility] [place], [place] [address] [facility], [place], [address], [facility] 09/05/2024 16:59:23 4 95045: Spinal manipulation , 3 to 4 regions completed [facility] [place], [place] [address] [facility], [place], [address], [facility] 08/29/2024 15:14:59 4 13361: Spinal manipulation , 3 to 4 regions completed [facility] [place], [place] [address] [facility], [place], [address], [facility] 08/24/2024 11:22:37 Imaging Results None recorded. Procedure [...] SNOMED-CT Code Diagnosis ICD10 Code Diagnosis Note [id number] Ryan Peralta DC [facility] & [address] [place] [address] 10/10/2024 09:26:45 10/10/2024 15:13:24 Lesion of lumbar spine 071121353 M99.01 Neck pain 17626616 M54.2 Thoracic s egmental dysfunction 578504191 M99.02 Lumbar seg mental dysfunction 299441841 M99.03 [id number] Ryan Peralta DC [facility] & [address] [place] [address] 10/24/2024 09:27:20 10/24/2024 16:15:22 Lesion of lumbar spine 144914796 M99.01 Neck pain 01171477 M54.2 Thoracic s egmental dysfunction 719950185 M99.02 Lumbar seg mental dysfunction 649004168 M99.03 [id number] Ryan Peralta DC [facility] [address] [facility] [place] [address] 11/08/2024 12:21:44 11/08/2024 18:19:19 Lesion of lumbar spine 295616786 M99.01 Neck pain 62503526 M54.2 Thoracic s egmental dysfunction 244381631 M99.02 Lumbar seg mental dysfunction 819855592 M99.03 Health Concerns Section Related Observation LastModified by Organization Detai ls LastModified Time None Recorded Concern Status LastModified by Organization Details LastModified Time None Recorded Payers Encounter Date Sequence Insurance Name Policy Number Policy Morrow Covered Member ID Morrow Member ID Guarantor Name 11/08/2024 1 [facility] [id number] Evelyn Sawant [id number] Evelyn Sawant Notes Date Note Type Note Provider Name and Address Organization Details Recorded Time 11/08/2024 text/html HPI - Cervical SpineReported bypatient.Location: left Quality:aching Severity:moderate Duration:2 weeks Timing:gradual Alleviating Factors:ice Aggravating Factors:sitting Associated Symptoms:no numbness/tinglingNo concha:Associated migraines and sternum pain Patient reports small headache last week. Ryan Peralta DC [address] [facility], [place], [address], [facility] 11/08/2024 18:06:11 OBGyn Episode No OBEpisode recorded.
--- NOTE | 2024-11-13 15:51 | ED_ITS ---
HPI - Overdose General Time Seen by Provider: 15:51 Date Seen: 11/13/24 Chief Complaint: Overdose Stated Complaint: overdose, lightheadedness Time Seen by Provider: 11/13/24 15:50 Source: patient and RN notes reviewed Mode of arrival: ambulatory Limitations: no limitations History of Present Illness HPI Narrative: This 23-year-old female is coming in accompanied by her fiance after a suicide attempt. She took 6 tablets of her 4 mg tizanidine. She ingested this about 30 minutes prior to arrival and then subsequently called her fiance. He brought her to the ER. She states she did this as she did not want to live anymore. She states there is some relationship issues that are the sole cause of this. She has been dealing with depression for about 13 years, has been hospitalized for depression and anxiety in prior suicide attempt, last maybe 4 years ago in [facility]. She notes people told her that she does not deserve her fiance and is going to room his life, this really stemmed her impetus to take these pills. She does not want to be hospitalized ever again. She is feeling drowsy from these medicines. She denies any other ingestion of anything else other than these pills. She also has BuSpar, rizatriptan and venlafaxine. [facility] [place]. complaint: intentional overdose Related Data Home Medications ?Medication ?Instructions ?Recorded ?Confirmed buspirone 15 mg tablet 15 mg PO 11/04/22 rizatriptan 10 mg disintegrating 10 mg PO 11/04/22 tablet venlafaxine 150 mg 225 mg PO 11/04/22 capsule,extended release 24 hr Allergies Allergy/AdvReac Type Severity Reaction Status Date / Time fluconazole (From Diflucan) Allergy Intermediate Verified 11/04/22 15:09 Review of Systems Status of ROS: Reports: 6 or more systems reviewed and unremarkable except as noted in History and below PFSH PFS Social History Smoking Status: Never smoker Do you use any of these nicotine containing products: None Second hand tobacco smoke exposure: No How often do you have a drink containing alcohol: never AUDIT-C Alcohol total score: 0 Non-prescribed substance use: denies use service: No Exam Const: Vital Signs, click to edit/add: Vital Signs - 24 hr 11/13/24 15:32 11/13/24 15:50 11/13/24 16:10 Temperature 97.7 F Pulse Rate 73 Pulse Rate [Pulse Oximeter] 99 Respiratory Rate 16 Blood Pressure 93/52 L Blood Pressure [Ri ght Upper Arm] 113/78 Pulse Oximetry 97 98 97 Oxygen Delivery Me thod Room Air 11/13/24 16:22 11/13/24 16:42 11/13/24 17:05 Temperature Pulse Rate 74 Pulse Rate [Pulse Oximeter] Respiratory Rate 18 Blood Pressure 92/55 L 83/61 L 100/68 Blood Pressure [Ri ght Upper Arm] Pulse Oximetry 98 Oxygen Delivery Me thod 11/13/24 17:06 11/13/24 17:15 11/13/24 17:21 Temperature Pulse Rate 77 73 90 Pulse Rate [Pulse Oximeter] Respiratory Rate Blood Pressure 104/69 Blood Pressure [Ri ght Upper Arm] Pulse Oximetry 100 100 100 Oxygen Delivery Me thod 11/13/24 17:51 11/13/24 18:01 11/13/24 18:02 Temperature Pulse Rate 76 73 Pulse Rate [Pulse Oximeter] Respiratory Rate 18 Blood Pressure 82/45 L 84/47 L 92/65 Blood Pressure [Ri ght Upper Arm] Pulse Oximetry 99 99 Oxygen Delivery Me thod 11/13/24 18:12 11/13/24 18:17 11/13/24 18:32 Temperature Pulse Rate 71 67 Pulse Rate [Pulse Oximeter] Respiratory Rate Blood Pressure 92/65 93/58 L 92/60 Blood Pressure [Ri ght Upper Arm] Pulse Oximetry 98 99 Oxygen Delivery Me thod 11/13/24 18:46 11/13/24 19:02 11/13/24 19:17 Temperature Pulse Rate Pulse Rate [Pulse Oximeter] Respiratory Rate Blood Pressure 97/54 L 98/52 L 99/56 L Blood Pressure [Ri ght Upper Arm] Pulse Oximetry Oxygen Delivery Me thod 11/13/24 19:20 11/13/24 19:28 11/13/24 19:31 Temperature 97.6 F Pulse Rate 85 Pulse Rate [Pulse Oximeter] 88 Respiratory Rate 18 Blood Pressure 104/70 Blood Pressure [Ri ght Upper Arm] 99/56 L Pulse Oximetry 99 98 Oxygen Delivery Me thod Room Air 11/13/24 19:46 11/13/24 20:02 11/13/24 20:16 Temperature Pulse Rate Pulse Rate [Pulse Oximeter] Respiratory Rate Blood Pressure 101/62 98/64 109/70 Blood Pressure [Ri ght Upper Arm] Pulse Oximetry Oxygen Delivery Me thod 11/13/24 20:32 11/13/24 20:47 11/13/24 21:02 Temperature Pulse Rate Pulse Rate [Pulse Oximeter] Respiratory Rate Blood Pressure 104/61 98/54 L 103/56 L Blood Pressure [Ri ght Upper Arm] Pulse Oximetry Oxygen Delivery Me thod 11/13/24 21:17 11/13/24 21:31 Temperature Pulse Rate Pulse Rate [Pulse Oximeter] Respiratory Rate Blood Pressure 100/60 102/60 Blood Pressure [Ri ght Upper Arm] Pulse Oximetry Oxygen Delivery Me thod This 23-year-old female is alert, interactive but does seem tired, she is able to stay awake. Sclera clear, conjugate gaze. Speech is normal. She has good eye contact, she is sedated from these medicines but overall mood certainly seems like she could be depressed, affect flat. Lungs are clear, good air entry, no wheezing crackles, no tachypnea. CV regular rate and rhythm, no murmur. Abdomen is soft, nontender, nondistended, no organomegaly. Moving extremities, did ambulate into the ED of her own accord. Documenting provider has reviewed patient's vital signs: yes Course Course ED Course: Nursing staff did talk to poison Control. They did states she would be drowsy, charcoal was not indicated. Needed to be observed for about 4-6 hours. If she did get some hypotension, treat with fluids. Patient understands that I cannot promise her that she will not be hospitalized, this is a serious issue. Will have her on pulse oximetry, established IV. She understands will be doing full complement of labs, urine toxicology, check for acetaminophen, salicylate and ethanol. She denies but will confirm this. Will also do screening COVID. Will do telehealth eval as well. Reevaluation(s) Time of Reevaluation #1: 16:46 Reevaluation #1: Most recent blood pressure is 83/61, have ordered a L of normal saline. Patient is seemingly asymptomatic, currently talking to telehealth. Time of Reevaluation #2: 17:22 Reevaluation #2: Have reviewed with patient and her fiance as well as family present that the psychiatrist as well as myself do recommend inpatient. We discussed her impulsivity, the fact that she took medicines. We greatly appreciate the fact that she came in for help afterwards but there really is not a safe plan for her in place as far as outpatient follow-up. This was evidence of impulsivity and president for intent. We really cannot safely discharge her without the félix rgent psychiatric evaluation and stay. We have discussed voluntary versus involuntary. I know she ultimately would prefer to not be hospitalized but she understands and states agreement with my concerns. She will agree for hospitalization. She would hope to not be placed back at [place] and I hope that we can comply with that. At this time she is voluntary but I have reviewed with her that there is evidence here for 72 hour hold if she does not continue to agree to cooperate. She definitely seems reasonable and understands the rationale for this. We ultimately really just want her to be safe. Time of Reevaluation #3: 20:44 Reevaluation #3: Patient is considered medically clear at this time. Consultations Consultation #1: Have reviewed patient's case with Franca from the telehealth evaluation. She is aware of the overdose with muscle relaxants. Patient did answer yes to intention allergy for suicidality. Cited boyfriend work issues. She regrets it and is feeling bad. Does have an outpatient psychology appointment, had been la p seen on these as of late but does have a visit scheduled but it is in 2 months. She does have a psychiatrist. She does not want to go inpatient and did sign a safety plan. They are wondering if I am comfortable with this. I have reviewed with them that I am certainly not comfortable with this. Patient has Wellbutrin at home, had a definite suicide gesture. There is no scheduled quick outpatient follow-up for this patient, her therapist nor her psychiatrist are aware of current events and unlikely to be able to converse with her on Thursday. They will have their psychiatrist review and talk to me. 5:13 p.m.: This psychiatrist agrees with my concerns, favors inpatient evaluation. If patient had taken the steps before ingestion, we may have been able to discharge to home with an outpatient plan. There is no evidence or predicted ears that this patient will not have impulsivity again. They will look for placement. Time: 16:59 Vital Signs Vital signs: Initial Vital Signs Temperature 97.7 F 11/13/24 15:32 Temperature Source Temporal Artery Scan 11/13/24 15:32 Pulse Rate 99 11/13/24 15:32 Respiratory Rate 16 11/13/24 15:32 Blood Pressure 113/78 11/13/24 15:32 Blood Pressure Mean 89 11/13/24 15:32 Pulse Oximetry 97 11/13/24 15:32 Oxygen Delivery Method Room Air 11/13/24 15:32 Vital Signs Temperature 97.7 F 11/13/24 15:32 Pulse Rate 99 11/13/24 15:32 Respiratory Rate 16 11/13/24 15:32 Blood Pressure 113/78 11/13/24 15:32 Pulse Oximetry 97 11/13/24 15:32 Oxygen Delivery Method Room Air 11/13/24 15:32 Temperature 97.6 F 11/13/24 19:28 Pulse Rate 88 11/13/24 19:28 Respiratory Rate 18 11/13/24 19:28 Blood Pressure 102/60 11/13/24 21:31 Pulse Oximetry 98 11/13/24 19:28 Oxygen Delivery Method Room Air 11/13/24 19:28 Medications Administered Medications: Generic Name Dose Route Start Last Admin Trade Name Freq PRN Reason Stop Dose Admin Acetaminophen 1,000 mg 11/13/24 22:36 11/13/24 22:53 Acetaminophen 500 Mg Tablet PO 11/13/24 22:37 1,000 mg ONCE ONE Administration Discontinued Medications Generic Name Dose Route Start Last Admin Trade Name Freq PRN Reason Stop Dose Admin Sodium Chloride 1,000 mls @ 500 mls/hr 11/13/24 16:46 11/13/24 19:05 0.9 % Sodium Chloride 1000 Ml IV 11/13/24 18:45 Infused .Q2H SYLVIA Infusion MDM - Overdose Lab Data Attestation: I reviewed the patient's lab results. Labs: Lab Results 11/13/24 11/13/24 11/13/24 Range/Units 16:14 16:36 17:02 WBC 5.18 (4.50-11.00) K/uL RBC 4.55 (4.00-5.20) m/uL Hgb 13.7 (12.0-16.0) gm/dL Hct 42.3 (33.0-51.0) % MCV 93 (80-100) fL MCH 30 (26-34) pg MCHC 32 (32-36) gm/dL RDW Coeff of Emiliano 12.1 (11.5-15.5) % Plt Count 188 (140-440) K/uL Neut % (Auto) 64.5 (42.0-72.0) % Lymph % (Auto) 25.3 (20-44) % [place] % (Auto) 7.7 (0.0-11.0) % Eos % (Auto) 1.7 (0.0-7.0) % Baso % (Auto) 0.8 (0.0-3.0) % Neut # (Auto) 3.34 (1.7-7.0) K/uL Lymph # (Auto) 1.31 (0.90-2.90) K/uL [place] # (Auto) 0.40 (0.00-0.90) K/UL Eos # (Auto) 0.09 (0.00-0.50) K/uL Baso # (Auto) 0.04 (0.00-0.30) K/uL Abs Immat Gran (auto) 0.00 (0.00-0.30) K/uL Imm/Tot Granulo (auto) 0.0 % Sodium 139 (135-149) mmol/L Potassium 3.6 (3.6-5.1) mmol/L Chloride 105 (96-114) mmol/L Carbon Dioxide 28 (20-32) mmol/L Anion Gap 6 L (7-15) mEq/L BUN 9 (5-24) mg/dL Creatinine 0.6 (0.5-1.5) mg/dL Estimated Creat Clear 145.85 Estimated GFR 128 ml/min Glucose 109 (60-115) mg/dL Calcium 9.2 (8.4-10.6) mg/dL Total Bilirubin 0.7 (0.1-1.5) mg/dL AST 31 (12-35) U/L ALT 24 (4-35) U/L Alkaline Phosphatase 35 L (40-150) U/L Total Protein 7.3 (6.0-8.3) g/dL Albumin 4.5 (3.3-5.0) g/dL Urine HCG, Qual Negative (Negative) Salicylates < 1.0 L (1.0-10) mg/dL Urine Opiates Screen Negative (Negative) Ur Oxycodone Screen Negative (Negative) Urine Methadone Screen Negative (Negative) Acetaminophen < 10.0 L (10.0-30.0) ug/mL Ur Barbiturates Screen Negative (Negative) U Tricyclic Antidepress Negative (Negative) Ur Phencyclidine Scrn Negative (Negative) Ur Amphetamines Screen Negative (Negative) U Methamphetamines Scrn Negative (Negative) U Benzodiazepines Scrn Negative (Negative) Urine Cocaine Screen Negative (Negative) U Marijuana (THC) Screen Negative (Negative) Ur Drug Screen Comment See Note Ethyl Alcohol < 0.00 L (0.01-0.03) % SARS-CoV-2 (PCR) Negative SARS-CoV-2 (Negative) ECG Data Attestation: I personally reviewed and interpreted this ECG as follows: (Normal sinus rhythm, 80 beats per minute. Incomplete right bundle branch block. QT corrected 456 milliseconds.) ECG interpretation date: 11/13/24 ECG interpretation time: 15:58 Discharge Plan Discharge Clinical Impression: Drug overdose Qualifiers: Encounter type: initial encounter Injury intent: intentional self-harm Qualified Code(s): T50.902A - Poisoning by unspecified drugs, medicaments and biological substances, intentional self-harm, initial encounter Depression Qualifiers: Depression Type: major depressive disorder Major depression recurrence: u nspecified whether recurrent Active/Remission status: currently active Major depression episode severity: severe Psychotic features: without psychotic features Qualified Code(s): F32.2 - Major depressive disorder, single episode, severe without psychotic features Patient Disposition: Xfer Psychiatric Hosp Condition: Unchanged Prescriptions: No Action venlafaxine 150 mg capsule,extended release 24hr 225 mg PO Patient Comments: TAKE 1 CAPSULE (150 MG) BY MOUTH ONCE DAILY WITH A MEAL. rizatriptan 10 mg tablet,disintegrating 10 mg PO buspirone 15 mg tablet 15 mg PO Patient Comments: TAKE 1 TABLET (15 MG) BY MOUTH ONCE DAILY. Stand Alone Forms: [email or web address] Info Instructions Discharge Comment: Patient transferring to [facility] psychiatric unit
--- NOTE | 2024-11-13 15:52 | ED.NURSE ---
Contacted poison control. Advise patient may feel drowsy. Recommendations include: treating hypotension that may occur, use fluids for treatment. EKG for baseline though medication is to cardiogenic and further monitor not necessary. Screen for other toxins like acetaminophen and aspirin. Monitor for 4-6 hours.
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
[2024-11-13 16:20] LABS: Basophils Absolute Auto 0.04 K/uL (0.00-0.30); Basophils Percent Auto 0.8 % (0.0-3.0); Eosinophils Absolute Auto 0.09 K/uL (0.00-0.50); Eosinophils Percent Auto 1.7 % (0.0-7.0); Hematocrit 42.3 % (33.0-51.0); Hemoglobin* 13.7 gm/dL (12.0-16.0); Lymphocytes Absolute Auto 1.31 K/uL (0.90-2.90); Lymphocytes Percent Auto 25.3 % (20-44); Mean Corpuscular HGB Conc 32 gm/dL (32-36); Mean Corpuscular Hemoglobin 30 pg (26-34); Mean Corpuscular Volume 93 fL (80-100); Monocytes Percent Auto 7.7 % (0.0-11.0); Neutrophils Absolute Auto 3.34 K/uL (1.7-7.0); Neutrophils Percent Auto 64.5 % (42.0-72.0); Platelet Count* 188 K/uL (140-440); RDW Coefficient of Variation % 12.1 % (11.5-15.5); Red Blood Count 4.55 m/uL (4.00-5.20); White Blood Count* 5.18 K/uL (4.50-11.00)
[2024-11-13 16:23] LABS: Slide Review Reflex No
[2024-11-13 16:34] LABS: Albumin* 4.5 g/dL (3.3-5.0); Chloride* 105 mmol/L (96-114); Sodium* 139 mmol/L (135-149)
[2024-11-13 16:35] LABS: Potassium* 3.6 mmol/L (3.6-5.1)
[2024-11-13 16:36] LABS: Creatinine* 0.6 mg/dL (0.5-1.5); Est. Creatinine Clearance* 145.85; Estimated Glomerular Filt Rate 128 ml/min
[2024-11-13 16:37] LABS: Alanine Aminotransferase* 24 U/L (4-35); Alkaline Phosphatase* 35 U/L (40-150); Anion Gap 6 mEq/L (7-15); Aspartate Amino Transferase* 31 U/L (12-35); Bilirubin Total* 0.7 mg/dL (0.1-1.5); Blood Urea Nitrogen* 9 mg/dL (5-24); Calcium* 9.2 mg/dL (8.4-10.6); Carbon Dioxide* 28 mmol/L (20-32); Glucose* 109 mg/dL (60-115); Total Protein* 7.3 g/dL (6.0-8.3)
[2024-11-13 16:40] LABS: Acetaminophen* < 10.0 ug/mL (10.0-30.0); Ethanol* < 0.00 % (0.01-0.03); Salicylate* < 1.0 mg/dL (1.0-10)
[2024-11-13] MEDS: 0.9 % SODIUM CHLORIDE 1000 ml 1,000 ML 500 ML IV (17:01)
[2024-11-13 17:16] LABS: Amphetamine Screen Urine Negative (Negative); Barbiturate Screen Urine Negative (Negative); Benzodiazepines Screen Urine Negative (Negative); Cannabinoid Screen Urine Negative (Negative); Cocaine Screen Urine Negative (Negative); Methadone Screen Urine Negative (Negative); Methamphetamines Screen Urine Negative (Negative); Opiate Screen Urine Negative (Negative); Oxycodone Screen Urine Negative (Negative); Phencyclidine Screen Urine Negative (Negative); Tricyclic Antidepressant Urine Negative (Negative)
[2024-11-13 17:17] LABS: Ur HCG Qualitative* Negative (Negative)
[2024-11-13 17:21] LABS: SARS PCR* Negative SARS-CoV-2 (Negative)
--- NOTE | 2024-11-13 20:53 | ED.NURSE ---
Brennon Mireles took pt's belongings home with him, this was okay'd by the patient.
[2024-11-13] MEDS: ACETAMINOPHEN 500 MG TABLET 1000 MG PO (22:53)
--- NOTE | 2024-11-13 23:19 | ED.NURSE ---
Called report to psych nurse at [facility] Gopal Kincaid and gave nurse to nurse report.
== END 2024-11-13 23:34 ==
PROVIDERS: Emergency Provider Family Medicine; PCP Psychiatry & Neurology Neurology
DX: T42.8X2A Poisoning by antiparkinsonism drugs and other central muscle-tone depressants, intentional self-harm, initial encounter (principal); F32.2 Major depressive disorder, single episode, severe without psychotic features
CPT/HCPCS: 36415; 80053; 80143; 80179; 80306; 81025; 82077; 85025; 87635; 93005; 94761; 99284; Q3014; A9270; J7030

== ENCOUNTER 2024-11-13 23:18 | Outpatient (CLI) | payer OTHER, SELFPAY | END 2024-11-13 23:19 | disposition home or self-care (01) | PROVIDERS: PCP Psychiatry & Neurology Neurology; Visit Provider Family Medicine | DX: R45.851 Suicidal ideations (principal) | CPT/HCPCS: A0425; A0428 ==

== ENCOUNTER 2024-12-09 10:14 | Emergency (ER) | payer OTHER, SELFPAY ==
--- OUTSIDE RECORDS SUMMARY | 2024-12-09 10:16 | XMS_ITS | Encounter Summary ---
Author Organization [facility] Address [address] [place] [address] Care Team Providers Care Wound/Ostomy Nurse Name Role Phone None Reported, Pcp Primary Care Provider Unavail able Reason for Referral * Outpatient (Routine) - Authorized Specialty Diagnoses / Procedures Referred By Contac t Referred To Contact Diagnoses Pelvic And Perineal Pain Procedures US Pelvis Transvaginal and Transabdominal Mackenzie Rodriguez APRN, C.N.P., [facility] [address] [place] [phone] Phone: tel: fax: [facility] Referral ID Status Reason Start Date Expiration Date V isits Requested Visits Authorized [id number] Authorized 12/08/2024 03/10/2026 1 1 Electronically signed by Mackenzie Rodriguez APRN, C.N.P., [facility]- at 12/08/2024 3:11 PM CDT Reason for Visit * Reason Comments Pelvic Pain * Appointment Request (Routine) - Closed Specialty Diagnoses / Procedures Referred By Contac t Referred To Contact Obstetrics and Gynecology Referral ID Status Reason Start Date Expiration Date Visits Re quested Visits Authorized [id number] Closed 12/06/2024 03/08/2026 1 1 Encounter Details Date Type Department Care Team (Late st Contact Info) Description 12/08/2024 3:00 PM CDT Office Visit Department of Obstetrics and Gynecology in [address] [phone] Mackenzie Rodriguez APRN, C.NAutumn., [facility]- [address] [place] [address] Pelvic And Perineal Pain (Primary Dx) Discharge Disposition: Home or Self Care Social History Tobacco Use Types Packs/Day Years Used Date Smoking Tobacco: Never Smokeless Tobacco: Never Tobacco Cessation:Counseling Given: Not Answered Alcohol Use Standard Drinks/Week Comments Not Currently 0 (1 standard drink = 0.6 oz pur e alcohol) [facility] Utilities Answer Date Recorded In the past 12 months has e electric, gas, oil, or water company threatened to shut off services in your home? No 11/16/2024 Humiliation, Afraid, Rape, and Kick questionnair e Answer Date Recorded Within the last year, have y ou been afraid of your partner or ex-partner? No 11/16/2024 Within the last year, have y ou been humiliated or emotionally abused in other ways by your partner or ex-partner? No Within the last year, have y ou been kicked, hit, slapped, or otherwise physically hurt by your partner or ex-partner? No 11/16/2024 Within the last year, have y ou been raped or forced to have any kind of sexual activity by your partner or ex-partner? No 11/16/2024 Hunger Vital Sign Answer Date Recorded Within the past 12 months, y ou worried that your food would run out before you got the money to buy more. Never true 11/16/19 25 Within the past 12 months, t he food you bought just didn't last and you didn't have money to get more. Never true 11/16/2024 PRAPARE - Transportation Answer Date Re corded In the past 12 months, has l ack of transportation kept you from medical appointments or from getting medications? No 10/23 In the past 12 months, has l ack of transportation kept you from meetings, work, or from getting things needed for daily living? No 11/16/2024 Dental Answer Date Recorded Dental: Regular Dentist Unknown 02/23/20 Housing Stability Answer Date Recorded What is your living situation today? I have a [facility] place to live 11/16/2024 Comments No Sex and Gender Information Value Date Recorded Sex Assigned at Not on file Legal Sex Female 1:34 PM CDT Gender Identity Not on file Sexual Orientation Not on file documented as of this encounter Last Filed Vital Signs Vital Sign Reading Time Taken Comments Blood Pressure 112/76 12/08/2024 2:51 PM CDT Pulse 105 12/08/2024 2:51 PM CDT Temperature - - Respiratory Rate - - Oxygen Saturation - - Inhaled Oxygen Concentration - - Weight - - Height - - Body Mass Index - - documented in this encounter Progress Notes * Mackenzie Rodriguez, DELROY, C.N.P., [facility] - 12/08/2024 3:00 PM CDT SUBJECTIVE CHIEF COMPLAINT/REASON FOR VISIT Chief Complaint Patient presents with Pelvic Pain HISTORY OF PRESENT ILLNESS Evelyn is a 24 y.o. female here for evaluation of left side pelvic pain. She rates the pain 7/10. It started 11 days ago in her back and has continued since then. Has moved to the left low abdomen/pelvic area. Is worse when she is up moving around, improves when she is resting. Radiates down her left leg, and causes a squeezing feeling in her back. Is sometimes a sharp feeling as well. No fever or chills. Heat helps. Rest helps. Midol, aleve, acetaminophen have not been helpful. She has a Mirena IUD, it has been in place for 3 years. Amenorrhea with the IUD. No dysuria or changes in bowel movements. No vaginal irritation, discharge, or odor. She notes that this is the 3rd time in 3 years of having the IUD that she has had this symptom. Thefirst time, she had a ruptured ovarian cyst. Second time, no abnormal findings and symptoms resolved with time. PROBLEM LIST: Problem List[1] Allergies Allergen Reactions Fluconazole Hives (Reselect Reaction) OBJECTIVE VITAL SIGNS BP 112/76 Pulse 105 PHYSICAL EXAMINATION General: left side guarding ADDING MACHINE MECHANIC: External Genitalia : No lesions. BUS: No lesions. Vagina: This appearing discharge, no lesions. Pelvic Floor: Nontender with insertion of speculum. Bladder: Not enlarged, nontender. Cervix: No lesions, no bleeding, no cervical motion tenderness. IUD strings visible and 3 cm in length Uterus: not enlarged nor tender. Adnexa: Ovaries not enlarged nor tender. Anus: no lesions. ASSESSMENT / PLAN #1 Pelvic And Perineal Pain - US Pelvis Transvaginal and Transabdominal; Future; Expected date: 12/08/2024 - Vaginitis Panel, Amplified RNA Left side pelvic/adnexal pain that has been present for 11 days. Left side guarding on exam. Exam is normal. I will call her with results of her swab. She will schedule an ultrasound. [1] Patient Active Problem List Diagnosis Adjustment Disorder With Depressed Mood Anxiety Generalized Disorder Borderline Personality Disorder (HCC) Deficiency Vitamin D Depression Major Recurrent Moderate (HCC) Migraine Without Aura Not Intractable Without Status Migrainosus Occipital Neuralgia Pain Left Lower Quadrant Unspecified Ovarian Cyst Left Side Pain Neck documented in this encounter Plan of Treatment Upcoming Encounters Date Type Department Care Team (Late st Contact Info) Description 12/12/2024 2:00 PM CDT Appointment Department of Radiology in [address] [phone] Mackenzie Rodriguez APRN, C.N.P., [facility] [address] [place] [phone] Discharge Disposition: Home or Self Care Pending Results Name Type Priority Associated Diagnoses Date /Time Vaginitis Panel, Amplified RNA Microbiology Routine Pelvic And Perineal Pain 12/08/2024 3:14 PM CDT Scheduled Orders Name Type Priority Associated Diagnoses Order Schedule US Pelvis Transvaginal and Transabdominal Imaging RAD - Routine (most inpatients and all outpatients) Pelvic And Perineal Pain Expected: 12/08/2024, Expires: 03/10/2026 documented as of this encounter Visit Diagnoses Diagnosis Pelvic And Perineal Pain- Primary documented in this encounter Care Teams Wound/Ostomy Nurse Relationship Specialty Start Date End Date None Reported, Pcp PCP - General Family Medicine 11/14/24 documented as of this encounter
--- OUTSIDE RECORDS SUMMARY | 2024-12-09 10:16 | XMS_ITS | Encounter Summary ---
Author Organization [facility] Address [address] [place] [address] Care Team Providers Care Size Mixer Name Role Phone None Reported, Pcp Primary Care Provider Unavail able Encounter Details Date Type Department Care Team (Latest Contact Info) Description 11/13/2024 Intake [facility] Social History Tobacco Use Types Packs/Day Years Used Date Smoking Tobacco: Never Assessed [facility] Utilities Answer Date Recorded In the past 12 months has [facility] electric, gas, oil, or water [employer] threatened to shut off services in your [...] your living situation today? I have a [facility] place to live 11/16/2024 Comments Unknown Sex and Gender Information Value Date Recorded Sex Assigned at Not on file Legal Sex Female 1:34 PM CDT Gender Identity Not on file Sexual Orientation Not on file documented as of this encounter Functional Status * Intimate Partner Violence Question Answer Date of Assessment Author Within the last year, have you been humiliated or emotionally abused in other ways by your partner or ex-partner? No 11/16/2024 8:45 AM Marysol Christianson M.S.Angela, L.I.C.S.W. Within the last year, have you been afraid of your partner or ex-partner? No 11/16/2024 8:45 AM Lorna Christianson M.S.Angela, L.I.C.S.W. Within the last year, have you been raped or forced to have any kind of sexual activity by your partner or ex-partner? No 11/16/2024 8:45 AM Marysol Christianson M.S.W., L.I.C.S.W. Within the last year, have you been kicked, hit, slapped, or otherwise physically hurt by your partner or ex-partner? No 11/16/2024 8:45 AM Lorna Christianson M.S.Angela, L.I.C.S.W. documented as of this encounter Plan of Treatment Upcoming Encounters Date Type Department Care Team (Late st Contact Info) Description 12/12/2024 2:00 PM CDT Appointment Department of Radiology in [address] [phone] Mackenzie Rodriguez, DELROY, C.N.P., [facility] [address] [facility] [place] [address] Discharge Disposition: Home or Self Care documented as of this encounter Visit Diagnoses Not on filedocumented in this encounter Care Teams Size Mixer Relationship Specialty Start Date End Date None Reported, Pcp PCP - General Family Medicine 11/14/24 documented as of this encounter
--- OUTSIDE RECORDS SUMMARY | 2024-12-09 10:17 | XMS_ITS | Clinical Summary ---
Author Organization [facility] Address [address] [place] [address] Care Team Providers Care Dinkey Dispatcher Name Role Phone None Reported, Pcp Primary Care Provider Unavail able Source Comments Patient records contain information from all sites at [facility]. For routine questions regarding patient records, call [phone] during business hours, M-F 8:00 AM - 5:00 PM Central Time. Record requests for emergency care only can be directed to [phone] at any time.[facility] Allergies Active Allergy Reactions Criticality Noted Date Comments Fluconazole Hives (Reselect Reaction) Medium 0 Medications * This document contains information received from the source organization and may not represent a complete record from that organization. busPIRone (BuSpar) 15 mg tablet Take 1 tablet by mouth daily. 12/02/19 24 Active acetaminophen (TylenoL) 500 mg tablet Take 1,000 mg by mouth every 6 (six) hours as needed for headaches. Active rizatriptan SUPERVISOR FISHING (Maxalt-SUPERVISOR FISHING) 10 mg disintegrating tablet Dissolve 10 mg in the mouth as needed for migraine. May repeat dose once in 2 hours if migraine is unresolved. Do not exceed 30 mg in 24 hours. Active tiZANidine (Zanaflex) 4 mg tablet Take 4 mg by mouth every 8 (eight) hours as needed for muscle spasms. Active venlafaxine XR (Effexor-XR) 75 mg 24 hr capsule Take 75 mg by mouth daily with morning meal. Take along with Effexor XR 150 mg capsules for a total of 225 mg daily. 11/03/19 25 Active venlafaxine XR (Effexor-XR) 150 mg 24 hr capsule Take 1 capsule (150 mg total) by mouth daily with morning meal. Take 1 capsule along with 1 capsule of Effexor XR 75 mg once daily for a total of 225 mg once daily. 2 capsule 11/16/19 25 Active venlafaxine XR (Effexor-XR) 150 mg 24 hr capsule Take 150 mg by mouth daily with morning meal. Take 1 capsule along with 1 capsule of Effexor XR 75 mg once daily for a total of 225 mg once daily. 12/02/19 24 025 Discontinued Active Problems Problem Noted Date Diagnosed Date Pain Left Lower Quadrant 11/14/2024 Unspecified Ovarian Cyst Left Side 11/14/2024 Pain Neck 08/23/2024 Migraine Without Aura Not In tractable Without Status Migrainosus 10/15/2021 Overview (11/14/2024): Previously on Imitrex, but becoming less effective. September 2021: Trying rizatriptan disintegrating tablet. Imitrex nasal spray was not covered by insurance. Borderline Personality Disorder 05/06/2021 Occipital Neuralgia 12/06/2020 Overview (11/14/2024): November 2020: Bilateral greater and lesser occipital nerve block injections done with very, very good lidocaine effect on symptoms. Depression Major Recurrent Moderate 02/22/2014 Anxiety Generalized Disorder 12/27/2013 Deficiency Vitamin D 01/14/2013 Adjustment Disorder With Depressed Mood 01/08/20 11 Resolved Problems Problem Noted Date Diagnosed Date Resolved Date Suicide Ideation 11/14/2024 11/16/2024 Encounters * This document contains information received from the source organization and may not represent a complete record from that organization. Date Type Department Care Team Description 12/08/2024 3:00 PM CDT Office Visit Department of Obstetrics and Gynecology in [address] [phone] Mackenzie Rodriguez, ASSISTANT NURSE MANAGER, C.N.P., WHNP-BC Pelvic And Perineal Pain (Primary Dx) Discharge Disposition: Home or Self Care 11/13/2024 Intake [facility] from Last 3 Months Immunizations Immunization Administration Dates Next Due 4vHPV (discontinued) 08/25/2012,05/12/2012,02/08 DTaP (Infanrix, Tripedia) 12/02/2004,07/2001,06/03/2000,1999,01/30/2000 H1N1 All Forms 09/07/2009 HepA Pediatric/Adolescent 01/07/2011,12/15/2006 Hib-HepB 03/01/2001,04/01/2000,01/30/2000 IPV 12/02/2004, 1,04/01/2000,1999 Influenza, Injectable, Mdck, Preservative Free, Quadrivalent 08/13/2021 Influenza, Injectable, Quadrivalent 07/10/2022 Influenza, Seasonal, Injectable 07/19/2013,08/25 MCV4 (Menveo) 01/01/2016,02/09/2012 MMR 12/02/2004,11/30/2000 RSV: respiratory syncytial v irus (AREXVY) recombinant vaccine 01/26/2024 Td (Adult), adsorbed 03/17/2022 Tdap 01/26/2024,05/06/2021,01/07/2011 MOSES 12/15/2006,11/30/2000 influenza trivalent vaccine (6 months and older)(PF) 06/13/2024,06/29/2009 influenza vaccine quad (FLUZONE/FLUARIX) (6 months and older)(PF) 07/26/2022,06/07/2020,11/04/2019,2017,07/22/2014 Social History Tobacco Use Types Packs/Day Years Used Date Smoking Tobacco: Never Smokeless Tobacco: Never Tobacco Cessation:Counseling Given: Not Answered Alcohol Use Standard Drinks/Week Comments Not Currently 0 (1 standard drink = 0.6 oz pur e alcohol) [facility] Utilities Answer Date Recorded In the past 12 months has e [employer], gas, oil, or water [employer] threatened to shut off services in your [...] money to buy more. Never true 11/16/19 Within the past 12 months, t he [...] your living situation today? I have a [facility] to live 11/16/2024 Comments No Sex and Gender Information Value Date Recorded Sex Assigned at Not on file Legal Sex Female 1:34 PM CDT Gender Identity Not on file Sexual Orientation Not on file Last Filed Vital Signs Vital Sign Reading Time Taken Comments Blood Pressure 112/76 12/08/2024 2:51 PM CDT Pulse 105 12/08/2024 2:51 PM CDT Temperature 37.2 C (99 F) 11/16/2024 10:15 AM PASSENGER CAR CLEANING SUPERVISOR Respiratory Rate 16 11/16/2024 10:15 AM PASSENGER CAR CLEANING SUPERVISOR Oxygen Saturation 98% 11/16/2024 10:15 AM PASSENGER CAR CLEANING SUPERVISOR Inhaled Oxygen Concentration - - Weight 68 kg (150 lb) 11/14/2024 1:42 AM PASSENGER CAR CLEANING SUPERVISOR Height 172.7 cm (5' 8) 11/14/2024 1:42 AM PASSENGER CAR CLEANING SUPERVISOR Body Mass Index 22.81 11/14/2024 1:42 AM PASSENGER CAR CLEANING SUPERVISOR Plan of Treatment Upcoming Encounters Date Type Department Care Team (Late st Contact Info) Description 12/12/2024 2:00 PM CDT Appointment Department of Radiology in [address] [phone] Mackenzie Rodriguez APRN, C.N.P., [facility]- [address] [place] [phone] Discharge Disposition: Home or Self Care Health Maintenance Due Date Last Done Comments Cervical/Vaginal Cancer Screening 1999 HIV Screening 1999 Hepatitis C Screening 1999 Depression Screening (Annual PHQ-2) 09/21/2024 DTaP,Tdap,and Td Vaccines (10 - Td or Tdap) 01/25/2034 01/26/2024, 03/17/2022, 05/06/2021, Additional history exists Hepatitis B Vaccines Completed 03/01/2001, 04/01/2000, 01/30/2000 IPV Vaccines Completed 12/02/2004, 05/22, 04/01/2000, Additional history exists Varicella Vaccines Completed 12/15/2006, 11/30/2000 HPV Vaccines Completed 08/25/2012, 04/22, 02/09/2012 COVID-19 Vaccine Completed 06/13/2024, , 08/13/2021, Additional history exists Influenza Vaccine Completed 06/13/2024, , 07/10/2022, Additional history exists Pneumococcal vaccine (0-49 years) Aged Out No longer eligible based on patient's age to complete this topic Insurance [facility] Advance Directives For more information, please contact: [phone] * Full Code (Latest Code Status on File) Date Activated Date Inactivated Comments 11/14/2024 1:02 AM 11/16/2024 4:58 PM Question Answer Comments Full Code: Not Discussed Due to: Not medically appropriate Care Teams Dinkey Dispatcher Relationship Specialty Start Date End Date None Reported, Pcp PCP - General Family Medicine 11/14/24
--- OUTSIDE RECORDS SUMMARY | 2024-12-09 10:17 | XMS_ITS | Continuity of Care Document ---
Author Organization [place] [facility] Address [address] [facility] [address] [place] [address] Assessment Encounter Date Assessment Date Assessment LastModified by Organization Details LastModified Time 11/22/2024 11/22/2024 ASSESSMENT: Visit 09/28 Patient is a good candidate for conservative [...] to contact our office. [email or web address] Not available 11/24/2024 10:32:26 Plan of Treatment Reminders Order Date Submit Date Provider Last Modified By Organization Details Last Modified Time Details Appointments None record ed. Lab None record ed. Referral None record ed. Procedures None record ed. Surgeries None record ed. Imaging None record ed. Medication Orders None record ed. Patient TargetsNo targets recorded. Patient InstructionsNo instructions recorded. Reason for Referral None Reported. Problems Name Problem SNOMED Code Status Onset Date Resolution Date Notes Provider Name and Address Organization Details Recorded Time Low back pain 726085414 Active 2024 Ryan Peralta [place] [address], [place], [address], [place] [facility] 5 15:14:41 Somatic dysfunction of sacral spine 073885686 Active 2024 Ryan Peralta [place] [address], [place], [address], [place] [facility] 5 15:14:41 Neck pain 37612420 Active 2023 Ryan Peralta [place] [address], [place], [address], [place] [facility] 4 11:21:16 Thoracic segmental dysfunction 575732672 Active 2023 Ryan Peralta [place] [address], [place], [address], [place] [facility] 4 11:21:16 Lesion of lumbar spine 496239046 Active 2023 Ryan Peralta [place] [address], [facility] [place], [address], [place] [facility] 4 11:21:16 Lumbar segmental dysfunction 649597600 Active 2023 Ryan Peralta [place] [address], [place], [address], [place] [facility] 4 11:21:16 Problem Notes None recorded. Procedures Surgical History Date Name Laterality Status Provider Name and Address Organization Details Recorded Time 5 33028: Spinal manipulation , 3 to 4 regions completed [place], [place] [address], [place], [address], [place] [facility] 2024 15:14:40 5 01609: Spinal manipulation , 3 to 4 regions completed Ryan [place], [place] [address], [place], [address], [place] [facility] 11/24/2024 10:32:15 5 64484: Spinal manipulation , 3 to 4 regions completed [facility] Lenny [place], [place] [address], [place], [address], [place] [facility] 11/08/2024 18:05:24 5 98677: Spinal manipulation , 3 to 4 regions completed [facility] Lenny Peralta, [place] [address], [place], [address], [place] [facility] 10/24/2024 15:26:53 5 20611: Spinal manipulation , 3 to 4 regions completed [facility] [place]enny [place], [place] [address], [place], [address], [place] [facility] 10/10/2024 14:39:50 5 13984: Spinal manipulation , 3 to 4 regions completed [facility] [place], [place] [address], [place], [address], [facility] - [facility] 09/28/2024 09:08:51 4 89479: Spinal manipulation , 3 to 4 regions completed [facility] [place], [place] [address], [place], [address], [facility] - [facility] 09/12/2024 14:40:41 4 06117: Spinal manipulation , 3 to 4 regions completed [facility] [place], [place] [address], [place], [address], [facility] 09/05/2024 16:59:23 4 20944: Spinal manipulation , 3 to 4 regions [facility] [place] [address], [place], [address], [facility] 08/29/2024 15:14:59 4 10460: Spinal manipulation , 3 to 4 regions completed [facility] Lenny [place], [place] [address], [place], [address], [facility] 08/24/2024 11:22:37 Imaging Results None recorded. Procedure Notes None recorded. Medical Equipment None Reported. Medications Name Sig Start Date Stop Date Status Note LastModified by Organization Details LastModified Time cyclobenzapr ine 10 mg tablet TAKE 1 TABLET (10 MG) BY MOUTH AT BEDTIME IF NEEDED FOR MUSCLE SPASM. active Not Available Not Available No t Available venlafaxine ER 75 mg capsule,exte nded release 24 hr TAKE 1 CAPSULE BY MOUTH EVERY MORNING. TAKE WITH 150MG CAPSULE active Not Available Not Available No t Available cetirizine 10 mg tablet TAKE 1 TABLET (10 MG) BY MOUTH ONCE DAILY. active Not Available Not Available No t Available tizanidine 4 mg tablet TAKE 1 TABLET (4 MG) BY MOUTH EVERY 6 HOURS IF NEEDED FOR MUSCLE SPASM. active Not Available Not Available No t Available venlafaxine ER 150 mg capsule,exte nded release 24 hr TAKE 1 CAPSULE BY MOUTH ONCE DAILY WITH FOOD. TAKE WITH 75MG CAP FOR TOTAL DAILY DOSE OF 225MG. active Not Available Not Available No t Available rizatriptan 10 mg disintegrati ng tablet PLEASE SEE ATTACHED FOR DETAILED DIRECTIONS active Not Available Not Available N ot Available gabapentin 100 mg capsule TAKE 1 [...] 5 DAYS. active Not Available Not Available Not Available buspirone 15 mg tablet TAKE 1 TABLET BY MOUTH ONCE DAILY active Not Available Not Available No t Available oxycodone 5 mg tablet TAKE 1-2 TABLETS (5-10 MG) BY MOUTH EVERY 4 HOURS IF NEEDED FOR PAIN. active Not Available Not Available No t Available Clotrimazole -3 2 % vaginal cream INSERT INTO THE VAGINA AT BEDTIME FOR 3 DAYS. active Not Available Not Available Not Available Vitals None Recorded Social History None recorded. Functional Status None recorded. Mental Status None recorded. Family History Nothing Reported. Medical History No medical history recorded. Gynecological HistoryNo gynecological history recorded. Obstetrics History GPAL:G 0 P 0 0 0 0 Past Encounters Encounter ID Performer Location Encounter Start Date Encounter Closed Date Diagnosis/Indication Diagnosis SNOMED-CT Code Diagnosis ICD10 Code Diagnosis Note [id number] Ryan Peralta [place] [facility] [address] [place] [address] 11/08/2024 12:21:44 11/08/2024 18:19:19 Lesion of lumbar spine 571671338 M99.01 Neck pain 20680271 M54.2 Thoracic s egmental dysfunction 823329408 M99.02 Lumbar seg mental dysfunction 156309662 M99.03 [id number] Ryan Peralta [place] [facility] [address] [place] [phone] 11/22/2024 09:24:23 11/24/2024 23:17:51 Lesion of lumbar spine 089521844 M99.01 Neck pain 15068409 M54.2 Thoracic s egmental dysfunction 620644973 M99.02 Lumbar seg mental dysfunction 507621135 M99.03 Health Concerns Section Related Observation LastModified by Organization Detai ls LastModified Time None Recorded Concern Status LastModified by Organization Details LastModified Time None Recorded Payers Encounter Date Sequence Insurance Name Policy Number Policy Morrow Covered Member ID Morrow Member ID Guarantor Name 11/22/2024 1 [facility] [id number] Evelyn Sawant [id number] Evelyn Sawant Notes Date Note Type Note Provider Name and Address Organization Details Recorded Time 11/22/2024 text/html HPI - Cervical SpineReported bypatient.Location: left Quality:aching Severity:moderate Duration:2 weeks Timing:gradual Alleviating Factors:ice Aggravating Factors:sitting Associated Symptoms:no numbness/tinglingNo concha:Associated migraines and sternum pain Patient reports small headache last week. Ryan Peralta [place] [address], [place], [address], [facility] 11/24/2024 10:32:38 OBGyn Episode No OBEpisode recorded.
--- OUTSIDE RECORDS SUMMARY | 2024-12-09 10:17 | XMS_ITS | Clinical Summary ---
Author Organization [facility] Address [address] [place] [address] Care Team Providers Care Flexo Operator Name Role Phone Rhonda Garcia Primary Care Provider [phone] Allergies Active Allergy Reactions Criticality Noted Date Comments Fluconazole Hives Medium 11/04/2019 Medications cyclobenzaprine (FLEXERIL) 10 mg tabletIndications: Tension headache Take 1 Tablet (10 mg) by mouth at bedtime if needed for Muscle Spasm. 30 Tablet 4 Active ibuprofen (ADVIL; MOTRIN) 200 mg tabletIndications: S/P laparoscopy Take 2-4 Tablets (400-800 mg) by mouth every 6 hours if needed for Pain (mild pain). 4 Active rizatriptan (MAXALT COOKER SULFITE) 10 mg disintegrating tabletIndications: Migraine without aura and without status migrainosus, not intractable PLACE 1 TABLET (10MG) ON THE TONGUE 2 TIMES DAILY IF NEEDED FOR MIGRAINE. MINIMUM AT 2HRS APART. MAX DOSE 30MG/24HRS. DO NOT TAKE DAILY 12 Tablet 2 5 Active busPIRone (BUSPAR) 15 mg tabletIndications: JULIOCESAR (generalized anxiety disorder) Take 1 Tablet (15 mg) by mouth once daily. 90 Tablet 5 Active venlafaxine (EFFEXOR XR) 150 mg Extended-Release capsuleIndications :JULIOCESAR (generalized anxiety disorder),Recurren t major depressive disorder, in full remission Take 1 Capsule (150 mg) by mouth once daily with a meal. Take with 75 mg capsule for total daily dose of 225 mg. 90 Capsule 5 Active venlafaxine (EFFEXOR XR) 75 mg cp24 Extended-Release capsuleIndications :Recurrent major depressive disorder, in full remission Take 1 Capsule (75 mg) by mouth once daily in the morning. With 150 mg capsule 90 Capsule 5 Active busPIRone (BUSPAR) 15 mg tabletIndications: JULIOCESAR (generalized anxiety disorder) Take 1 Tablet (15 mg) by mouth once daily. 90 Tablet 3 4 11/23/19 25 Discontin ued(Reord er (E-cancel not sent)) venlafaxine (EFFEXOR XR) 150 mg Extended-Release capsuleIndications :JULIOCESAR (generalized anxiety disorder),Recurren t major depressive disorder, in full remission Take 1 Capsule (150 mg) by mouth once daily with a meal. Take with 75 mg capsule for total daily dose of 225 mg. 90 Capsule 3 4 11/23/19 25 Discontin ued(Reord er (E-cancel not sent)) venlafaxine (EFFEXOR XR) 75 mg cp24 Extended-Release capsuleIndications :Recurrent major depressive disorder, in full remission Take 1 Capsule (75 mg) by mouth every morning. With 150 mg capsule 90 Capsule 3 4 11/23/19 25 Discontin ued(Reord er (E-cancel not sent)) Hospital, Clinic, or Other Facility Administered Medication Ordered Dose Route Frequency Start Date End Date Status levonorgestrel (MIRENA) 20 mcg/24 hours (8 yrs) 52 mg intrauterine device (IUD) 1 DeviceIndications: contraception 1 Device IU Q 8 YEARS 10/22/2022 Active Active Problems Problem Noted Date Diagnosed Date Pap smear for cervical cancer screening 02/04/20 Overview (02/04/2024): 01/2024 NIL Plan: PAP/HPV due [...] Encounters Date Type Department Care Team Description 11/22/2024 Telephone [facility] [address] [place] [address] Sally Carias MD Questions 10/10/2024 Refill [facility] [address] [place] [address] Rhonda Garcia DO Refill Request (Rizatriptan) from Last 3 Months Immunizations Immunization Administration Dates Next Due COVID-19 VACCINE SPIKEVAX [...] AM CDT Legal Sex Female 7:35 AM SNAKER TRACTOR DRIVER Gender Identity Female 06/15/2020 10:37 AM CDT Sexual Orientation Bisexual 06/15/2020 10 :37 AM CDT Obstetrics History Para Term AB IAB SAB Ectopic Multiple Livin g Live Births 0 0 0 0 0 0 0 0 0 0 0 Last Filed Vital Signs Vital Sign Reading Time Taken Comments Blood Pressure 108/66 08/17/2024 1:45 PM SNAKER TRACTOR DRIVER Pulse 95 08/17/2024 1:45 PM SNAKER TRACTOR DRIVER Temperature 36.7 C (98.1 F) 01/28/2024 11:49 AM CDT Respiratory Rate 16 08/17/2024 1:45 PM SNAKER TRACTOR DRIVER Oxygen Saturation 99% 08/17/2024 1:45 PM SNAKER TRACTOR DRIVER Inhaled Oxygen Concentration - - Weight 66.7 kg (147 lb) 08/17/2024 1:45 PM SNAKER TRACTOR DRIVER Height 172.5 cm (5' 7.91) 08/11/2024 1:46 PM CS T Body Mass Index 22.41 08/11/2024 1:46 PM SNAKER TRACTOR DRIVER Plan of Treatment Upcoming Encounters Date Type Department Care Team (Late st Contact Info) Description 12/16/2024 9:45 AM CDT Telemedicine [facility] [address] [place] [address] Sally Carias MD [address] [place] [address] Health Maintenance Due Date Last Done Comments Depression screening for age 12+ 06/13/2025 06/13/2024, 12/02/2023, 11/03/2023, Additional history exists BMI (ht and wt on same day) for age 18+ 08/11/2025 08/11/2024, 06/13/2024, 02/02/2024, Additional history exists Pap test for age 21-65 01/19/2027 01/20/2024, 2020 Tetanus booster 01/25/2034 01/26/2024, 02/20, 05/06/2021, Additional history exists HPV series for age 9-26 Completed 08/25/20 12, 08/25/2012, 05/12/2012, Additional history exists HIV for age 15-65 Completed 09/16/2022 Hepatitis C screening for age 18-79 Completed 09/16/2022 Tdap Completed 01/26/2024, 04/21, 01/07/2011 COVID-19 vaccine series Completed 06/13/20 24, 09/16/2022, 08/13/2021, Additional history exists Influenza Vaccine Completed 06/13/2024, , 07/10/2022, Additional history exists Pneumococcal series for age 6-49 Aged Out No longer eligible based on patient's age to complete this topic Procedures Procedure Name Priority Date/Time Associated Diagnosis Comments SPRAY GUN SIZER THIN PREP PAP SCREEN IMAGED Routine 01/20/2024 10:20 AM CDT Screening for cervical cancer LC HIV-1/O/2, 4TH GENERATION Routine 09/16/2022 3:45 PM SNAKER TRACTOR DRIVER Screening for HIV (human immunodeficiency virus) LC HCV ANTIBODY RFX TO QUANT PCR Routine 09/16/2022 3:45 PM SNAKER TRACTOR DRIVER Need for hepatitis C screening test from Last 3 Months or Most Recently Relevant to Health Maintenance Results * SPRAY GUN SIZER THIN PREP PAP SCREEN IMAGED (01/20/2024 10:20 AM CDT) Case Report Gynecologic Cytology Report Case: [id number] Authorizing Provider: Home Gamble Collected: 01/20/2024 Alisson Valdovinos MD Ordering Location: [facility] Received: 01/20/[address] [place] [address] First Screen: Jill Travis Specimen: SPRAY GUN SIZER ThinPrep Vial Screening, Cervical 02/04/2024 8:06 AM CDT [facility] INTERPRETATION/ RESULT NEGATIVE FOR INTRAEPITHELIAL LESION OR MALIGNANCY (NIL) (none) 02/04/2024 8:06 AM CDT [facility] IMEN ADEQUACY Satisfactory for evaluation Endocervical component present 02/04/2024 8:06 AM CDT [facility] Date of LMP na 02/04/2024 8:06 AM CDT [facility] Last Pap Date 05/06/21 02/04/2024 8:06 AM CDT [facility] Last Pap Result NIL 8:06 AM CDT [facility] Abnormal Pap or [place] Bx in last 5 years No 02/04/2024 8:06 AM CDT [facility] Menstrual Status Hormonally Suppressed 02/04/2024 8:06 AM CDT [facility] [place] Bx Done Today No 02/04/2024 8:06 AM CDT [facility] Additional Information None given 02/04/2024 8:06 AM CDT [facility] Comment: Cytology is screened at [facility] - [address], [place] [address] and [facility] - [address], [place] [address] and [facility] - [address] [place] [address] Interpreted at [facility] - [address], [place] [address] Automated Review Successful 02/04/2024 8:06 AM CDT [facility] Comment:Specimen processed s uccessfully by automated senior patrol agent device, ThinPrep Imaging System, [employer] Note The pap test is a [...] and malignant lesions. 02/04/2024 8:06 AM CDT [facility] Other (Cervical) Non-Blood / Unknown 01/20/2024 10:20 AM CDT 01/20/2024 10:28 AM CDT Home Gamble MD PATHOLOGY/CYTOLOG Y Final Result [facility] [address] [place] [address], [place] * LC HCV ANTIBODY RFX TO QUANT PCR (09/16/2022 3:45 PM SNAKER TRACTOR DRIVER) Pathologist [facility] HCV Ab <0.1 0.0 - 0.9 s/co ratio 09/19/2022 11:08 AM SNAKER TRACTOR DRIVER [facility] Blood BLOOD SPECIMEN / Unknown Venipuncture / Unknown 09/16/2022 3:45 PM SNAKER TRACTOR DRIVER 09/16/2022 3:47 PM SNAKER TRACTOR DRIVER Narrative [facility] ([facility] - 09/19/2022 11:08 AM SNAKER TRACTOR DRIVER Performed at: [address] [place] [id number] Logging Tractor Operator: Ganesh Morillo MD, Phone: [phone] Rhonda Garcia DO LABORATORY Final Result Performing Organization Address City/[facility] Co de Phone Number [facility] ([facility]) [address] [place] [address], [place] * LC HIV-1/O/2, 4TH GENERATION (09/16/2022 3:45 PM SNAKER TRACTOR DRIVER) Pathologist [facility] HIV Scr 4th Gen Non Reactive Non Reactive 09/19/2022 11:08 AM SNAKER TRACTOR DRIVER [facility] ([facility]) Comment: HIV Negative HIV-1/HIV-2 antibodies and HIV-1 p24 antigen were NOT detected. There is no laboratory evidence of HIV infection. Blood BLOOD SPECIMEN / Unknown Venipuncture / Unknown 09/16/2022 3:45 PM SNAKER TRACTOR DRIVER 09/16/2022 3:47 PM SNAKER TRACTOR DRIVER Narrative [facility] - 09/19/2022 11:08 AM SNAKER TRACTOR DRIVER Performed at: [address] [id number] Logging Tractor Operator: Ganesh Morillo MD, Phone: [phone] us Rhonda Liyah Ronaldolien DO LABORATORY Final Result [facility] ([facility]) [address] [place] [address], from Last 3 Months or Most Recently Relevant to Health Maintenance Insurance [facility] [place] [id number] Advance Directives * Full Code (Latest Code Status on File) Date Activated Date Inactivated Comments 01/28/2024 8:30 AM 01/28/2024 3:00 PM Question Answer Comments Code Status Discussion: Reviewed Preferences * Full Code Date Activated Date Inactivated Comments 11/25/2022 10:42 AM 11/25/2022 5:03 PM Question Answer Comments Code Status Discussion: Not Discussed Care Teams Flexo Operator Relationship Specialty Start Date End Date Rhonda Garcia DO [address] [place] [address] PCP - General Family Practice 09/16/22
--- OUTSIDE RECORDS SUMMARY | 2024-12-09 10:17 | XMS_ITS | Continuity of Care Document ---
Author Organization [place] [facility] Address [address] [place] [address] Assessment Encounter Date Assessment Date Assessment LastModified by Organization Details LastModified Time 2024 2024 ASSESSMENT: Patient is a good candidate for conservative [...] to contact our office. [email or web address] Not available 2024 15:14:40 Plan of Treatment Reminders Order Date Submit [...] Organization Details Recorded Time Low back pain 229402986 Active 2024 Ryan Peralta [place] [address], [place], [address], [place] [facility] 5 15:14:41 Somatic dysfunction of sacral spine 339705892 Active 2024 Ryan Peralta [place] [address], [facility] [place], [address], [place] [facility] 5 15:14:41 Neck pain 39801990 Active 2023 Ryan Peralta [place] [address], [facility] [place], [address], [place] [facility] 4 11:21:16 Thoracic segmental dysfunction 209488990 Active 2023 Ryan Peralta [place] [address], [facility] [place], [address], [place] [facility] 4 11:21:16 Lesion of lumbar spine 822787734 Active 2023 Ryan Peralta [place] [address], [place], [address], [place] [facility] 4 11:21:16 Lumbar segmental dysfunction 141510284 Active 2023 Ryan Peralta [place] [address], [place], [address], [place] [facility] 4 11:21:16 Problem Notes None recorded. Procedures Surgical History Date Name Laterality Status Provider Name and Address Organization Details Recorded Time 5 41106: Spinal manipulation , 3 to 4 regions completed Ryan Peralta [place] [address], [place], [address], [place] [facility] 2024 15:14:40 5 [address]: Spinal manipulation , 3 to 4 regions completed Ryan Orellanaanilyanira [place] [address], [place], [address], [place] [facility] 11/24/2024 10:32:15 5 [address]23: Spinal manipulation , 3 to 4 regions completed [facility] [place] [address], [place], [address], [facility] 11/08/2024 18:05:24 5 [address]: Spinal manipulation , 3 to 4 regions completed [facility] Lenny Peralta [place] [address], [place], [address], [facility] 10/24/2024 15:26:53 5 20878: Spinal manipulation , 3 to 4 regions completed [facility] [place] [address], [place], [address], [facility] 10/10/2024 14:39:50 5 63734: Spinal manipulation , 3 to 4 regions completed [facility] [place], [place] [address], [place], [address], [facility] 09/28/2024 09:08:51 4 08050: Spinal manipulation , 3 to 4 regions completed [facility] [place], [place] [address], [place], [address], [facility] 09/12/2024 14:40:41 4 25363: Spinal manipulation , 3 to 4 regions completed [facility] [place] [address], [place], [address], [facility] 09/05/2024 16:59:23 4 27612: Spinal manipulation , 3 to 4 regions completed [facility] [place] [address], [place], [address], [facility] 08/29/2024 15:14:59 4 16043: Spinal manipulation , 3 to 4 regions completed [facility] [place] [address], [place], [address], [facility] 08/24/2024 11:22:37 Imaging Results None recorded. [...] SNOMED-CT Code Diagnosis ICD10 Code Diagnosis Note [id number] Ryan Peralta DC [facility] [address] [place] [address] 11/08/2024 12:21:44 11/08/2024 18:19:19 Lesion of lumbar spine 766579398 M99.01 Neck pain 43965729 M54.2 Thoracic s egmental dysfunction 072978014 M99.02 Lumbar seg mental dysfunction 164560863 M99.03 [id number] Ryan Lenny Peralta DC [facility] & [address] [place], [place] [address] 11/22/2024 09:24:23 11/24/2024 23:17:51 Lesion of lumbar spine 196939992 M99.01 Neck pain 37904207 M54.2 Thoracic s egmental dysfunction 528847593 M99.02 Lumbar seg mental dysfunction 700666217 M99.03 [id number] Ryan Lenny Peralta DC [facility] & [address] [place] [address] 2024 14:46:19 2024 16:57:36 Lumbar segmental dysfunction 870914757 M99.03 Low back pain 652200333 M54.50 Somatic dy sfunction of sacral spine 011662365 M99.04 Thoracic s egmental dysfunction 074446451 M99.02 Health Concerns Section Related Observation LastModified by Organization Detai ls LastModified Time None Recorded Concern Status LastModified by Organization Details LastModified Time None Recorded Payers Encounter Date Sequence Insurance Name Policy Number Policy Morrow Covered Member ID Morrow Member ID Guarantor Name 2024 1 [facility] [id number] Evelyn Sawant [id number] Evelyn Sawant Notes Date Note Type Note Provider Name and Address Organization Details Recorded Time 2024 text/html HPI - Lumbar SpineReported bypatient.Location: bilateral Quality:aching Severity:not changing Timing:morning Aggravating Factors:standing Alleviating Factors:ice Ryan Peralta [place] [address] [place] [address], [place], [address], [facility] 2024 15:15:24 OBGyn Episode No OBEpisode recorded.
[2024-12-09 10:18] VITALS: BP 112/78; PULSE 86; RESP 18; TEMP 36.8; O2SAT 96; BMI 22.8
--- NOTE | 2024-12-09 10:58 | CRLHL7_ITS ---
For Patients: As a result of the Century Cures Act, medical imaging exams and procedure reports are released immediately into your electronic medical record. You may view this report before your referring provider. If you have questions, please contact your health care provider. INDICATION: Left lower quadrant pain. TECHNIQUE: Transvaginal ultrasound examination of the pelvis was performed. Grayscale and color Doppler images were obtained. Spectral analysis was performed. COMPARISON: Pelvic ultrasound 11/04/2022. FINDINGS: Uterus: Measures 7.4 x 2.8 x 4.2 cm. Normal in echotexture. No suspicious masses. Endometrium: Obscured by the intrauterine device. Right Ovary: Measures 4.0 x 2.0 x 2.2 cm. No suspicious masses. Normal arterial and venous flow on color Doppler imaging. Left ovary: Measures 4.2 x 1.8 x 2.3 cm. No suspicious masses. Normal arterial and venous flow on color Doppler imaging. Cul-de-sac: No free fluid. IMPRESSION: Unremarkable pelvic ultrasound examination. No ovarian torsion. Dictated by Oziel Woodard MD @ 12/09/2024 12:12:05 PM (Electronically Signed)
--- NOTE | 2024-12-09 11:16 | ED.GENADULT ---
HPI - General Adult General Chief complaint: Abdominal Pain Stated complaint: lower abdominal pain, left side Time Seen by Provider: 12/09/24 10:49 Source: patient Mode of arrival: ambulatory Limitations: no limitations History of Present Illness HPI narrative: 24-year-old female presenting today with left lower quadrant abdominal pain that has been present since Thursday-which is less than 1 week. She states that the pain comes and goes but for the last 24 hours the pain has been constant. Patient then states that the pain has been coming and going for probably 2 weeks. She states that she feels nauseated but denies vomiting. No fevers or chills. She states that she has 1 bowel movement every several days and she can not remember her last 1. This is normal for her. She denies urinary symptoms such as increased frequency, urgency or dysuria. No blood in her urine or stools. She states that she has Mirena IUD that she has had for the last 3 years and denies . She states that she has had pain like this twice in the past, 1 time was because of an ovarian cyst. This pain radiates into her back and down her leg sometimes. Related Data Home Medications ?Medication ?Instructions ?Recorded ?Confirmed buspirone 15 mg tablet 15 mg PO 11/04/22 rizatriptan 10 mg disintegrating 10 mg PO 11/04/22 tablet venlafaxine 150 mg 225 mg PO 11/04/22 capsule,extended release 24 hr Previous Rx's ?Medication ?Instructions ?Recorded ketorolac 10 mg tablet 10 mg PO TID 5 days #15 tabs 12/09/24 Allergies Allergy/AdvReac Type Severity Reaction Status Date / Time fluconazole (From Diflucan) Allergy Intermediate Verified 12/09/24 10:23 Review of Systems Status of ROS: Reports: 10 or more systems reviewed and unremarkable except as noted in History and below [facility] Social History Smoking Status: Never smoker Do you use any of these nicotine containing products: None Second hand tobacco smoke exposure: No How often do you have a drink containing alcohol: never AUDIT-C Alcohol total score: 0 Non-prescribed substance use: denies use service: No Exam Narrative: Exam Narrative: Well-nourished well-developed patient in no acute distress. Alert and oriented. Answers questions appropriately. Mood appropriate, affect is slightly flat. Thoughts are goal oriented and rational. No tangential or magical thinking noted. Patient speaks in full sentences without needing to catch her breath. HEENT: Normocephalic atraumatic. Pupils are equally round reactive to light. Extraocular muscles are intact. Conjunctivae are moist without any icterus noted. Moist mucous membranes. Posterior pharynx is normal. Neck is soft without any lymphadenopathy or thyromegaly. No masses are appreciated. Cardiovascular: Heart is regular rate and rhythm S1 and S2 are present without any murmurs. Lungs: Clear to auscultation bilaterally no wheezes rhonchi or rales are appreciated. Patient takes deep breaths without any discomfort. Abdomen: Soft and nontender nondistended with normal bowel sounds. No guarding or rebound. No masses or organomegaly appreciated. Extremities: Bilateral lower extremities are without edema. No pain with manipulation of the hip joint. Negative straight leg test. Skin: Well perfused without any obvious rashes. Const: Vital Signs, click to edit/add: Vital Signs - 24 hr 12/09/24 10:18 Temperature 98.2 F Pulse Rate [Right Pulse Oximeter] 86 Respiratory Rate 18 Blood Pressure [Ri ght Upper Arm] 112/78 Pulse Oximetry 96 Oxygen Delivery Me thod Room Air Course Course ED Course: Normal lactate. Normal UA. Negative test. CBC unremarkable. Normal chemistries. Normal CRP. Ultrasound unremarkable. Vital Signs Vital signs: Initial Vital Signs Temperature 98.2 F 12/09/24 10:18 Temperature Source Temporal Artery Scan 12/09/24 10:18 Pulse Rate 86 12/09/24 10:18 Pulse Rhythm Regular 12/09/24 10:18 Pulse Strength 3+ Normal 12/09/24 10:18 Respiratory Rate 18 12/09/24 10:18 Blood Pressure 112/78 12/09/24 10:18 Blood Pressure Mean 89 12/09/24 10:18 Blood Pressure Position Sitting 12/09/24 10:18 Pulse Oximetry 96 12/09/24 10:18 Oxygen Delivery Method Room Air 12/09/24 10:18 Vital Signs Temperature 98.2 F 12/09/24 10:18 Pulse Rate 86 12/09/24 10:18 Respiratory Rate 18 12/09/24 10:18 Blood Pressure 112/78 12/09/24 10:18 Pulse Oximetry 96 12/09/24 10:18 Oxygen Delivery Method Room Air 12/09/24 10:18 Temperature 98.2 F 12/09/24 10:18 Pulse Rate 86 12/09/24 10:18 Respiratory Rate 18 12/09/24 10:18 Blood Pressure 112/78 12/09/24 10:18 Pulse Oximetry 96 12/09/24 10:18 Oxygen Delivery Method Room Air 12/09/24 10:18 Medical Decision Making MDM Narrative Medical decision making narrative: 24 year old female with left lower quadrant discomfort unclear etiology. Recommend patient follow-up with OBGYN. Will send her home with Toradol in the meantime. Lab Data Labs: Lab Results 12/09/24 12/09/24 Range/Units 11:08 11:15 WBC 4.30 L (4.50-11.00) K/uL RBC 4.54 (4.00-5.20) m/uL Hgb 14.1 (12.0-16.0) gm/dL Hct 42.1 (33.0-51.0) % MCV 93 (80-100) fL MCH 31 (26-34) pg MCHC 34 (32-36) gm/dL RDW Coeff of Emiliano 12.1 (11.5-15.5) % Plt Count 181 (140-440) K/uL Neut % (Auto) 46.0 (42.0-72.0) % Lymph % (Auto) 42.6 (20-44) % [place] % (Auto) 8.6 (0.0-11.0) % Eos % (Auto) 1.9 (0.0-7.0) % Baso % (Auto) 0.9 (0.0-3.0) % Neut # (Auto) 2.00 (1.7-7.0) K/uL Lymph # (Auto) 1.80 (0.90-2.90) K/uL [place] # (Auto) 0.40 (0.00-0.90) K/UL Eos # (Auto) 0.10 (0.00-0.50) K/uL Baso # (Auto) 0.00 (0.00-0.30) K/uL Abs Immat Gran (auto) 0.00 (0.00-0.30) K/uL Imm/Tot Granulo (auto) 0.0 % Sodium 140 (135-149) mmol/L Potassium 4.2 (3.6-5.1) mmol/L Chloride 106 (96-114) mmol/L Carbon Dioxide 28 (20-32) mmol/L Anion Gap 6 L (7-15) mEq/L BUN 11 (5-24) mg/dL Creatinine 0.6 (0.5-1.5) mg/dL Estimated Creat Clear 144.59 Estimated GFR 128 ml/min Glucose 86 (60-115) mg/dL Lactate < 0.4 L (0.5-1.9) mmol/L Calcium 9.0 (8.4-10.6) mg/dL C-Reactive Protein < 0.5 L (0.5-1.0) mg/dL Urine Color Yellow (Yellow) Urine Appearance Clear (Clear) Urine pH 6.5 (5.0-8.5) Ur Specific [place] 1.025 (1.000-1.030) Urine Protein 1+ A (Negative) Urine Glucose (UA) Negative (Negative) Urine Ketones Negative (Negative) Urine Blood Negative (Negative) Urine Nitrite Negative (Negative) Urine Bilirubin Negative (Negative) Urine Urobilinogen 1.0 (0.2-1.0) Ur Leukocyte Esterase Negative (Negative) Urine RBC 0-2 (0-2) Urine WBC 0-2 (0-5) Ur Squamous Epith Cells Moderate A (None-Few) Urine Bacteria None (None) Urine Mucus Few A (None) Urine HCG, Qual Negative (Negative) Imaging Data US - abdomen: Attestation: I have reviewed the pertinent imaging results. Radiologist's impression: COMPARISON: Pelvic ultrasound 11/04/2022. FINDINGS: Uterus: Measures 7.4 x 2.8 x 4.2 cm. Normal in echotexture. No suspicious masses. Endometrium: Obscured by the intrauterine device. Right Ovary: Measures 4.0 x 2.0 x 2.2 cm. No suspicious masses. Normal arterial and venous flow on color Doppler imaging. Left ovary: Measures 4.2 x 1.8 x 2.3 cm. No suspicious masses. Normal arterial and venous flow on color Doppler imaging. Cul-de-sac: No free fluid. IMPRESSION: Unremarkable pelvic ultrasound examination. No ovarian torsion. Discharge Plan Discharge Clinical Impression: Abdominal pain Patient Disposition: Home, Self-Care Condition: Stable Additional Instructions: Unclear what is causing her pain at this time. Constipation can certainly cause abdominal pain similar to what you are experiencing. Recommend you start daily MiraLax and have more regular bowel movements to see if this helps. Other things to consider include pulled muscle, endometriosis. Recommend you follow-up with OBGYN. In the meantime okay to take Toradol as needed/as directed for discomfort. Prescriptions: New ketorolac 10 mg tablet 10 mg PO TID 5 Days Qty: 15 0RF No Action venlafaxine 150 mg capsule,extended release 24hr 225 mg PO Patient Comments: TAKE 1 CAPSULE (150 MG) BY MOUTH ONCE DAILY WITH A MEAL. rizatriptan 10 mg tablet,disintegrating 10 mg PO buspirone 15 mg tablet 15 mg PO Patient Comments: TAKE 1 TABLET (15 MG) BY MOUTH ONCE DAILY. Follow Up/Referrals: Apolinar Carrion MD [Referring] - Stand Alone Forms: [facility] Info Instructions
[2024-12-09 11:17] LABS: Appearance Urine Clear (Clear); Bilirubin Urine Negative (Negative); Blood Urine Negative (Negative); Color Urine Yellow (Yellow); Glucose Urine Negative (Negative); Ketones Urine Negative (Negative); Leukocyte Esterase Urine Negative (Negative); Nitrite Urine Negative (Negative); Protein Urine 1+ (Negative); Specific Gravity Urine 1.025 (1.000-1.030); pH Urine 6.5 (5.0-8.5)
[2024-12-09 11:18] LABS: Ur HCG Qualitative* Negative (Negative)
[2024-12-09 11:25] LABS: Lactate* < 0.4 mmol/L (0.5-1.9)
[2024-12-09 11:27] LABS: RBC Urine 0-2 (0-2); Squamous Epithelial Cell Urine Moderate (None-Few); WBC Urine 0-2 (0-5)
[2024-12-09 11:28] LABS: Mucus Urine Few
--- OUTSIDE RECORDS SUMMARY | 2024-12-09 11:30 | XMS_ITS | Encounter Summary ---
Author Organization [facility] Address [address] [place] [address] Care Team Providers Care Efficiency Miner Blasting Name Role Phone None Reported, Pcp Primary Care Provider Unavail able Reason for Referral * Outpatient (Routine) - Authorized Specialty Diagnoses / Procedures Referred By Contac t Referred To Contact Diagnoses Pelvic And Perineal Pain Procedures US Pelvis Transvaginal and Transabdominal Mackenzie Rodriguez APRN, C.N.P., [facility] [address] [place] [phone] Phone: tel: fax: [facility] Referral ID Status Reason Start Date Expiration Date V isits Requested Visits Authorized [id number] Authorized 12/08/2024 03/10/2026 1 1 Electronically signed by Mackenzie Rodriguez APRN, C.N.P., [facility]- at 12/08/2024 3:11 PM CDT Reason for Visit * Reason Comments Pelvic Pain * Appointment Request (Routine) - Closed Specialty Diagnoses / Procedures Referred By Contac t Referred To Contact Obstetrics and Gynecology Referral ID Status Reason Start Date Expiration Date Visits Re quested Visits Authorized [id number] Closed 12/06/2024 03/08/2026 1 1 Encounter Details Date Type Department Care Team (Late st Contact Info) Description 12/08/2024 3:00 PM CDT Office Visit Department of Obstetrics and Gynecology in [address] [phone] Mackenzie Rodriguez APRN, C.NAutumn., [facility] [address] [place] [address] Pelvic And Perineal Pain (Primary Dx) Discharge Disposition: Home or Self Care Social History Tobacco Use Types Packs/Day Years Used Date Smoking Tobacco: Never Smokeless Tobacco: Never Tobacco Cessation:Counseling Given: Not Answered Alcohol Use Standard Drinks/Week Comments Not Currently 0 (1 standard drink = 0.6 oz pur e alcohol) [facility] Utilities Answer Date Recorded In the [...] your living situation today? 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 BUS: No [...] PM CDT Appointment Department of Radiology in [address] [phone] Mackenzie Rodriguez APRN, C.N.P., [facility] [address] [place] [phone] Discharge Disposition: Home or Self Care Pending [...] Primary documented in this encounter Care Teams Efficiency Miner Blasting Relationship Specialty Start Date End Date None Reported, Pcp PCP - General Family Medicine 11/14/24 documented as of this encounter
--- OUTSIDE RECORDS SUMMARY | 2024-12-09 11:30 | XMS_ITS | Encounter Summary ---
Author Organization [facility] Address [address] [place] [address] Care Team Providers Care Silk Folder Name Role Phone None Reported, Pcp Primary Care Provider Unavail able Encounter Details Date Type Department Care Team (Latest Contact Info) Description 11/13/2024 Intake [facility] Social History Tobacco Use Types Packs/Day Years Used Date Smoking Tobacco: Never Assessed [facility] Utilities Answer Date Recorded In the past 12 months has [facility] electric, gas, oil, or water Marginize threatened to shut off services in your [...] your living situation today? I have a [facility] place to live 11/16/2024 Comments Unknown Sex [...] PM CDT Appointment Department of Radiology in [address] [phone] Mackenzie Rodriguez, DELROY, C.N.P., [facility] [address] [place] [address] Discharge Disposition: Home or Self Care documented as of this encounter Visit Diagnoses Not on filedocumented in this encounter Care Teams Silk Folder Relationship Specialty Start Date End Date None Reported, Pcp PCP - General Family Medicine 11/14/24 documented as of this encounter
--- OUTSIDE RECORDS SUMMARY | 2024-12-09 11:31 | XMS_ITS | Data Portability ---
Author Organization [place] - [employer], [employer] COORDINATOR [facility] Address [address] [facility] [address] [place] [address] Assessment Encounter Date Assessment Date Assessment LastModified by Organization Details LastModified Time 10/10/2024 10/10/2024 ASSESSMENT: Visit 02/26 Patient is a good candidate for conservative [...] contact our office. Not available 11/08/2024 18:05:46 11/22/2024 11/22/2024 ASSESSMENT: Visit 09/28 Patient is [...] hesitate to contact our office. Not available 11/24/2024 10:32:26 2024 2024 ASSESSMENT: Patient is a good [...] hesitate to contact our office. Not available 2024 15:14:40 Plan of Treatment [...] Organization Details Recorded Time Low back pain 114079381 Active 2024 [facility] Lenny OrellanaanilCru[place], [place] [address] [facility], [place], [phone], [facility] 5 15:14:41 Somatic dysfunction of sacral spine 464192911 Active 2024 [facility] Lenny OrellanaanilCru[place], [place] [address] [facility], [place], [address], [facility] 5 15:14:41 Neck pain 66711752 Active 2023 [facility] Lenny OrellanaanilCru[place], [place] [address] [facility], [place], [address], [facility] 4 11:21:16 Thoracic segmental dysfunction 994561716 Active 2023 Ryan Peralta [place] [address] [facility], [facility] [place], [phone], [facility] 4 11:21:16 Lesion of lumbar spine 649184266 Active 2023 Ryan Peralta [place] [address] [facility], [place], [address], [facility] 4 11:21:16 Lumbar segmental dysfunction 174491704 Active 2023 Ryan Peralta [place] [address] [facility], [place] [place], [address], [facility] 4 11:21:16 Problem Notes None recorded. Procedures Surgical History Date Name Laterality Status Provider Name and Address Organization Details Recorded Time 5 45859: Spinal manipulation , 3 to 4 regions completed ASHWIN Yanes [facility] [address], [place], [address], [facility] 2024 15:14:40 5 87733: Spinal manipulation , 3 to 4 regions completed Ryan Peralta [place] [address] [facility], [place], [address], [facility] 11/24/2024 10:32:15 5 16163: Spinal manipulation , 3 to 4 regions completed ASHWIN Yanes [facility] [address], [place], [address], [facility] 11/08/2024 18:05:24 5 97960: Spinal manipulation , 3 to 4 regions completed ASHWIN Yanes [facility] [address], [place], [address], [facility] 10/24/2024 15:26:53 5 12823: Spinal manipulation , 3 to 4 regions completed Ryan Peralta [place] [address] [facility], [place], [address], [facility] 10/10/2024 14:39:50 5 49404: Spinal manipulation , 3 to 4 regions completed [facility] Lenny Peralta [place] [address] [facility], [place], [address], [facility] 09/28/2024 09:08:51 4 31031: Spinal manipulation , 3 to 4 regions completed [facility] Lenny Peral[place], [place] [address] [facility], [place], [address], [facility] 09/12/2024 14:40:41 4 36352: Spinal manipulation , 3 to 4 regions completed [facility] Lenny Peral[place], [place] [address] [facility], [place], [address], [facility] 09/05/2024 16:59:23 4 17175: Spinal manipulation , 3 to 4 regions completed [facility] Lenny SelvinCruger, [place] [address] [facility], [place], [address], [facility] 08/29/2024 15:14:59 4 96744: Spinal manipulation , 3 to 4 regions completed [facility] Lenny SelvinCruger, [place] [address] [facility], [place], [address], [facility] 08/24/2024 11:22:37 Imaging Results None recorded. Procedure [...] SNOMED-CT Code Diagnosis ICD10 Code Diagnosis Note [id number] Ryan Peralta DC [facility] & [address] [facility] [place] [address] 08/24/2024 10:14:22 08/24/2024 11:50:00 Lesion of lumbar spine 302829379 M99.01 Neck pain 85609386 M54.2 Thoracic s egmental dysfunction 930146827 M99.02 Lumbar seg mental dysfunction 379812862 M99.03 [id number] Ryan Peralta DC [facility] & [address] [place] [address] 08/29/2024 11:38:29 08/29/2024 16:29:36 Lesion of lumbar spine 891142808 M99.01 Neck pain 91603413 M54.2 Thoracic s egmental dysfunction 180669270 M99.02 Lumbar seg mental dysfunction 451536912 M99.03 [id number] Ryan Peralta DC [facility] [address] [place] [address] 09/05/2024 16:09:09 09/05/2024 17:14:32 Lesion of lumbar spine 452649122 M99.01 Neck pain 83977456 M54.2 Thoracic s egmental dysfunction 786333052 M99.02 Lumbar seg mental dysfunction 782720518 M99.03 [id number] Ryan Peralta DC [facility] [address] [place] [address] 09/12/2024 12:52:40 09/12/2024 14:51:32 Lesion of lumbar spine 754025582 M99.01 Neck pain 25850984 M54.2 Thoracic s egmental dysfunction 599773796 M99.02 Lumbar seg mental dysfunction 469214277 M99.03 [id number] Ryan Peralta DC [facility] [address] [place] [address] 09/26/2024 10:18:53 09/27/2024 11:21:16 Lesion of lumbar spine 333387248 M99.01 Neck pain 13206403 M54.2 Thoracic s egmental dysfunction 074390190 M99.02 Lumbar seg mental dysfunction 554622014 M99.03 [id number] Rayn Peralta DC [facility] [address] [place] [address] 10/10/2024 09:26:45 10/10/2024 15:13:24 Lesion of lumbar spine 899659470 M99.01 Neck pain 19855819 M54.2 Thoracic s egmental dysfunction 662021478 M99.02 Lumbar seg mental dysfunction 182342622 M99.03 [id number] Ryan Peralta DC [facility] [address] [place] [address] 10/24/2024 09:27:20 10/24/2024 16:15:22 Lesion of lumbar spine 609171256 M99.01 Neck pain 43330983 M54.2 Thoracic s egmental dysfunction 231737723 M99.02 Lumbar seg mental dysfunction 295776785 M99.03 [id number] Ryan Lenny Peralta DC [facility] [address] [place] [address] 11/08/2024 12:21:44 11/08/2024 18:19:19 Lesion of lumbar spine 638125454 M99.01 Neck pain 97994016 M54.2 Thoracic s egmental dysfunction 196735649 M99.02 Lumbar seg mental dysfunction 855450528 M99.03 [id number] Ryan Lenny Peralta DC [facility] [address] [facility] [place] [address] 11/22/2024 09:24:23 11/24/2024 23:17:51 Lesion of lumbar spine 585134969 M99.01 Neck pain 52984834 M54.2 Thoracic s egmental dysfunction 144593859 M99.02 Lumbar seg mental dysfunction 893110573 M99.03 [id number] Ryan Lenny Peralta DC [facility] & [address] [facility] [place] [address] 2024 14:46:19 2024 16:57:36 Lumbar segmental dysfunction 743680851 M99.03 Low back pain 974885141 M54.50 Somatic dy sfunction of sacral spine 372248091 M99.04 Thoracic s egmental dysfunction 580299574 M99.02 Health Concerns Section Related Observation LastModified by Organization Detai ls LastModified Time None Recorded Concern Status LastModified by Organization Details LastModified Time None Recorded Advance Directives Directive None Recorded Payers Encounter Date Sequence Insurance Name Policy Number Policy Morrow Covered Member ID Morrow Member ID Guarantor Name 10/10/2024 1 [facility] [id number] Evelyn Sawant [id number] Evelyn Sawant 10/24/2024 1 [facility] [id number] Evelyn Ogdenon [id number] Evelyn Tomxton 11/08/2024 1 [facility] [id number] Evelyn Savana [id number] Evelyn Augusta 11/22/2024 1 [facility] [id number] Evelyn Tomxton [id number] Evelyn Tomxton 2024 1 [facility] [id number] Evelyn Tomxton [id number] Evelyn Tomxton Notes Date Note Type Note Provider Name and Address Organization Details Recorded Time 10/10/2024 text/html HPI - Cervical SpineReported bypatient.Location: left Quality:aching Severity:moderate Duration:2 weeks Timing:gradual Alleviating Factors:ice Aggravating Factors:sitting Associated Symptoms:no numbness/tinglingNo concha:Associated migraines and sternum pain Patient reports small headache last week. Ryan Peralta [place] [address] [facility], [place], [address], [facility] 10/10/2024 14:40:35 10/24/2024 text/html HPI - Cervical SpineReported bypatient.Location: left Quality:aching Severity:moderate Duration:2 weeks Timing:gradual Alleviating Factors:ice Aggravating Factors:sitting Associated Symptoms:no numbness/tinglingNo concha:Associated migraines and sternum pain Patient reports small headache last week. Ryan Peralta [place] [address] [facility], [place], [address], [facility] 10/24/2024 15:28:13 11/08/2024 text/html HPI - Cervical SpineReported bypatient.Location: left Quality:aching Severity:moderate Duration:2 weeks Timing:gradual Alleviating Factors:ice Aggravating Factors:sitting Associated Symptoms:no numbness/tinglingNo concha:Associated migraines and sternum pain Patient reports small headache last week. Ryan Peralta DC [address] [facility], [place], [address], [facility] 11/08/2024 18:06:11 11/22/2024 text/html HPI - Cervical SpineReported bypatient.Location: left Quality:aching Severity:moderate Duration:2 weeks Timing:gradual Alleviating Factors:ice Aggravating Factors:sitting Associated Symptoms:no numbness/tinglingNo concha:Associated migraines and sternum pain Patient reports small headache last week. Ryan OrellanaanilyaniraASHWIN [address] [facility], [place], [address], [facility] 11/24/2024 10:32:38 2024 text/html HPI - Lumbar SpineReported bypatient.Location: bilateral Quality:aching Severity:not changing Timing:morning Aggravating Factors:standing Alleviating Factors:ice Ryan PeraltaASHWIN [address] [facility], [place], [address], [facility] 2024 15:15:24 OBGyn Episode No OBEpisode recorded.
--- OUTSIDE RECORDS SUMMARY | 2024-12-09 11:31 | XMS_ITS | Clinical Summary ---
Author Organization [facility] Address [address] [place] [address] Care Team Providers Care Senior Account Director Name Role Phone Rhonda Garcia Primary Care Provider Allergies Active Allergy Reactions Criticality Noted Date [...] Pain (mild pain). 4 Active rizatriptan (MAXALT DIESEL MACHINIST) 10 mg disintegrating tabletIndications: Migraine without aura [...] Type Department Care Team Description 11/22/2024 Telephone [facility] [address] [place] [address] Sally Carias MD Questions 10/10/2024 Refill [facility] [address] [place] [address] Rhonda Garcia DO Refill Request (Rizatriptan) from [...] AM CDT Legal Sex Female 7:35 AM LAUNCH LEADER Gender Identity Female 06/15/2020 10:37 AM CDT Sexual Orientation Bisexual 06/15/2020 10 :37 AM CDT Obstetrics History Para Term AB IAB SAB Ectopic Multiple Livin g Live Births 0 0 0 0 0 0 0 0 0 0 0 Last Filed Vital Signs Vital Sign Reading Time Taken Comments Blood Pressure 108/66 08/17/2024 1:45 PM LAUNCH LEADER Pulse 95 08/17/2024 1:45 PM LAUNCH LEADER Temperature 36.7 C (98.1 F) 01/28/2024 11:49 AM CDT Respiratory Rate 16 08/17/2024 1:45 PM LAUNCH LEADER Oxygen Saturation 99% 08/17/2024 1:45 PM LAUNCH LEADER Inhaled Oxygen Concentration - - Weight 66.7 kg (147 lb) 08/17/2024 1:45 PM LAUNCH LEADER Height 172.5 cm (5' 7.91) 08/11/2024 1:46 PM CS T Body Mass Index 22.41 08/11/2024 1:46 PM LAUNCH LEADER Plan of Treatment Upcoming Encounters Date Type Department Care Team (Late st Contact Info) Description 12/16/2024 9:45 AM CDT Telemedicine [facility] [address] [place] [address] Sally Carias MD [address] [place] [address] Health Maintenance Due Date Last Done Comments [...] Procedure Name Priority Date/Time Associated Diagnosis Comments CHANNEL MARKETING SPECIALIST THIN PREP PAP SCREEN IMAGED Routine 01/20/2024 10:20 AM CDT Screening for cervical cancer LC HIV-1/O/2, 4TH GENERATION Routine 09/16/2022 3:45 PM LAUNCH LEADER Screening for HIV (human immunodeficiency virus) LC HCV ANTIBODY RFX TO QUANT PCR Routine 09/16/2022 3:45 PM LAUNCH LEADER Need for hepatitis C screening test from Last 3 Months or Most Recently Relevant to Health Maintenance Results * CHANNEL MARKETING SPECIALIST THIN PREP PAP SCREEN IMAGED (01/20/2024 10:20 AM CDT) Case Report Gynecologic Cytology Report Case: [id number] Authorizing Provider: Home Gamble Collected: 01/20/2024 Alisson Valdovinos MD Ordering Location: [facility] Received: 01/20/[address] [place] [address] First Screen: Jill Travis Specimen: CHANNEL MARKETING SPECIALIST ThinPrep Vial Screening, Cervical 02/04/2024 8:06 AM CDT [facility] INTERPRETATION/ RESULT NEGATIVE FOR INTRAEPITHELIAL LESION OR MALIGNANCY (NIL) (none) 02/04/2024 8:06 AM CDT [facility] IMEN ADEQUACY Satisfactory for evaluation Endocervical component present 02/04/2024 8:06 AM CDT [facility] Date of LMP na 02/04/2024 8:06 AM CDT [facility] Last Pap Date 05/06/21 02/04/2024 8:06 AM CDT [facility] Last Pap Result NIL 8:06 AM CDT [facility] Abnormal Pap or [place] Bx in last 5 years No 02/04/2024 8:06 AM CDT [facility] Menstrual Status Hormonally Suppressed 02/04/2024 8:06 AM CDT [facility] [place] Bx Done Today No 02/04/2024 8:06 AM CDT [facility] Additional Information None given 02/04/2024 8:06 AM CDT [facility] Comment: Cytology is screened at [facility] - [address], [place] [address] and [facility] - [address], [place] [address] and [facility] - [address] [facility] [place] [address] Interpreted at [facility] - [address], [place] [address] Automated Review Successful 02/04/2024 8:06 AM CDT [facility] Comment:Specimen processed s uccessfully by automated firmware engineer device, ThinPrep Imaging System, [employer] Note The pap test is a [...] and malignant lesions. 02/04/2024 8:06 AM CDT [facility]AL LAB[facility] Other (Cervical) Non-Blood / Unknown 01/20/2024 10:20 AM CDT 01/20/2024 10:28 AM CDT Home Gamble MD PATHOLOGY/CYTOLOG Y Final Result [facility] [address] [place] [address], [place] * LC HCV ANTIBODY RFX TO QUANT PCR (09/16/2022 3:45 PM LAUNCH LEADER) Pathologist [facility] HCV Ab <0.1 0.0 - 0.9 s/co ratio 09/19/2022 11:08 AM LAUNCH LEADER [facility] TEST[facility] ([facility]) Blood BLOOD SPECIMEN / Unknown Venipuncture / Unknown 09/16/2022 3:45 PM LAUNCH LEADER 09/16/2022 3:47 PM LAUNCH LEADER Narrative [facility] ([facility]) - 09/19/2022 11:08 AM LAUNCH LEADER Performed at: [address] [place] [id number] Event Promotions Coordinator: Ganesh Morillo MD, Phone: [phone] Rhonda Garcia DO LABORATORY Final Result Performing Organization Address City/[facility] Co de Phone Number [facility] ([facility]) [address] [place] [id number], [place] * LC HIV-1/O/2, 4TH GENERATION (09/16/2022 3:45 PM LAUNCH LEADER) Pathologist [facility] HIV Scr 4th Gen Non Reactive Non Reactive 09/19/2022 11:08 AM LAUNCH LEADER [facility] ([facility]) Comment: HIV Negative HIV-1/HIV-2 antibodies and HIV-1 p24 antigen were NOT detected. There is no laboratory evidence of HIV infection. Blood BLOOD SPECIMEN / Unknown Venipuncture / Unknown 09/16/2022 3:45 PM LAUNCH LEADER 09/16/2022 3:47 PM LAUNCH LEADER N[facility]ative [facility] - 09/19/2022 11:08 AM LAUNCH LEADER Performed at: [address] [id number] Event Promotions Coordinator: Ganesh Morillo MD, Phone: [phone] us Rhonda Liyah Ronaldolien DO LABORATORY Final Result [facility] ([facility]) [address] [place] [address], from Last 3 Months or Most Recently Relevant to Health Maintenance Insurance [facility] [place] [id number] Advance Directives * Full Code (Latest Code Status on File) Date Activated Date Inactivated Comments 01/28/2024 8:30 AM 01/28/2024 3:00 PM Question Answer Comments Code Status Discussion: Reviewed Preferences * Full Code Date Activated Date Inactivated Comments 11/25/2022 10:42 AM 11/25/2022 5:03 PM Question Answer Comments Code Status Discussion: Not Discussed Care Teams Senior Account Director Relationship Specialty Start Date End Date Rhonda Garcia DO [address] [place] [address] PCP - General Family Practice 09/16/22
--- OUTSIDE RECORDS SUMMARY | 2024-12-09 11:31 | XMS_ITS | Clinical Summary ---
Author Organization [facility] Address [address] [place] [address] Care Team Providers Care Dowel Sander Operator Name Role Phone None Reported, Pcp Primary Care Provider Unavail able Source Comments Patient records contain information from all sites at [facility]. For routine questions regarding patient records, call [phone] during business hours, M-F 8:00 AM - 5:00 PM Central Time. Record requests for emergency care only can be directed to [phone] at any time.[facility] Allergies Active Allergy Reactions Criticality Noted Date [...] hours as needed for headaches. Active rizatriptan CENTRAL STERILIZATION TECHNICIAN (Maxalt-CENTRAL STERILIZATION TECHNICIAN) 10 mg disintegrating tablet Dissolve 10 mg [...] Visit Department of Obstetrics and Gynecology in [address] [address] Mackenzie Rodriguez, INSIDE OUTSIDE SALES REPRESENTATIVE, C.N.P., WHNP-BC Pelvic And Perineal Pain (Primary [...] drink = 0.6 oz pur e alcohol) [facility] Utilities Answer Date Recorded In the past 12 months has e [employer], gas, oil, or water [employer] threatened to shut off services in your [...] your living situation today? I have a [facility] place to live 11/16/2024 Comments No [...] 37.2 C (99 F) 11/16/2024 10:15 AM LEHR TENDER Respiratory Rate 16 11/16/2024 10:15 AM LEHR TENDER Oxygen Saturation 98% 11/16/2024 10:15 AM LEHR TENDER Inhaled Oxygen Concentration - - Weight 68 kg (150 lb) 11/14/2024 1:42 AM LEHR TENDER Height 172.7 cm (5' 8) 11/14/2024 1:42 AM LEHR TENDER Body Mass Index 22.81 11/14/2024 1:42 AM LEHR TENDER Plan of Treatment Upcoming Encounters Date Type Department Care Team (Late st Contact Info) Description 12/12/2024 2:00 PM CDT Appointment Department of Radiology in [address] [phone] Mackenzie Rodriguez APRN, C.N.P., [facility]- [address] [place] [phone] Discharge Disposition: Home or Self Care Health [...] patient's age to complete this topic Insurance [facility] Advance Directives For more information, please contact: [phone] * Full Code (Latest Code Status on File) Date Activated Date Inactivated Comments 11/14/2024 1:02 AM 11/16/2024 4:58 PM Question Answer Comments Full Code: Not Discussed Due to: Not medically appropriate Care Teams Dowel Sander Operator Relationship Specialty Start Date End Date None Reported, Pcp PCP - General Family Medicine 11/14/24
--- OUTSIDE RECORDS SUMMARY | 2024-12-09 11:31 | XMS_ITS | Clinical Summary ---
Author Organization [facility] Address [address] , [address] [place] [address] Phone Care Team Providers Care Electrical High Tension Tester Name Role Phone Records, Outside Unavailable Unavailable Conditions or Problems Problem Name Problem Code Onset Date Status Entry Date Provider Comment Standard Description Annotate Migraine headache [id number] (SNOMED CT) Active Apolinar Carrion MD Migraine [...]
[2024-12-09 11:33] LABS: Basophils Percent Auto 0.9 % (0.0-3.0); Eosinophils Percent Auto 1.9 % (0.0-7.0); Hematocrit 42.1 % (33.0-51.0); Hemoglobin* 14.1 gm/dL (12.0-16.0); Lymphocytes Percent Auto 42.6 % (20-44); Mean Corpuscular HGB Conc 34 gm/dL (32-36); Mean Corpuscular Hemoglobin 31 pg (26-34); Mean Corpuscular Volume 93 fL (80-100); Monocytes Percent Auto 8.6 % (0.0-11.0); Platelet Count* 181 K/uL (140-440); RDW Coefficient of Variation % 12.1 % (11.5-15.5); Red Blood Count 4.54 m/uL (4.00-5.20)
[2024-12-09 11:50] LABS: Slide Review Reflex No
[2024-12-09 11:52] LABS: Chloride* 106 mmol/L (96-114); Potassium* 4.2 mmol/L (3.6-5.1); Sodium* 140 mmol/L (135-149)
[2024-12-09 11:56] LABS: Anion Gap 6 mEq/L (7-15); Carbon Dioxide* 28 mmol/L (20-32); Glucose* 86 mg/dL (60-115)
[2024-12-09 12:10] LABS: Blood Urea Nitrogen* 11 mg/dL (5-24); Creatinine* 0.6 mg/dL (0.5-1.5); Est. Creatinine Clearance* 144.59; Estimated Glomerular Filt Rate 128 ml/min
[2024-12-09 12:12] LABS: C Reactive Protein* < 0.5 mg/dL (0.5-1.0)
[2024-12-09 12:29] VITALS: BP 108/68; PULSE 81; RESP 14
== END 2024-12-09 12:30 | disposition home or self-care (01) ==
PROVIDERS: Emergency Provider Family Medicine; PCP Student in an Organized Health Care Education/Training Program
DX: R10.32 Left lower quadrant pain (principal)
CPT/HCPCS: 36415; 76830; 80048; 81001; 81025; 83605; 85025; 86140; 87086; 93976; 99284